=== PATIENT | male | born 1945 | race African-American/Black ===

== ENCOUNTER 2016-03-14 23:08 | Inpatient (IN) | payer OTHER ==
[2016-03-14 23:35] VITALS: BMI 32.8
[2016-03-14 23:36] LABS: RDW 14.7 % (11.9-15.9)
[2016-03-14 23:43] LABS: MCH 25.9 pg (25.7-33.7); MCHC 32.1 g/dl (32.0-35.9); MEAN CELL VOLUME 80.6 fl (80-96); MEAN PLT VOLUME 9.1 fl (7.5-11.1); PLATELET COUNT 165 K/MM3 (134-434); WHITE BLOOD COUNT 15.9 K/mm3 (4.0-10.0)
[2016-03-15] LABS: INR 1.16 (0.82-1.09); PROTHROMBIN TIME (PATIENT) 12.8 SEC (9.98-11.88)
--- NOTE | 2016-03-15 00:13 | PDOC ---
History of Present Illness - General History Source: Patient, Spouse, Old Records Exam Limitations: No Limitations - History of Present Illness Initial Comments: 03/15/16 00:31 The patient is a 70 year old male, with a significant past medical history of HTN, hyperlipidemia, diabetes, CAD, [place] (09/30/2015), GERD, and an enlarged prostate, who presents to the emergency department with a fever, chills and body aches since yesterday but worsening today. The patient additionally reports a dry cough. He reports waves of nausea but denies any vomiting, diarrhea, abdominal pain or dysuria. The patient denies chest pain or SOB. His is with him in the ED. Allergies: None reported. Past Surgical History: Stent, Quadricep Knee Repair Social History: Non smoker. Denies alcohol or drug use. PCP: Dr. Dariana Huddleston Tape Recorder Repairer: Dr. Nice/Dr. Greenberg <Marilin Tolentino - Last Filed: 03/15/16 02:02> <Nel Rosa - Last Filed: 03/15/16 02:35> - General Chief Complaint: Weakness Stated Complaint: WEAKNESS Time Seen by Provider: 03/14/16 23:14 Past History <Marilin Tolentino - Last Filed: 03/15/16 02:02> - Past Medical History Anemia: No Asthma: No Cancer: No Cardiac Disorders: Yes (CAD) CVA: No COPD: No CHF: No Dementia: No Diabetes: Yes (NIDDM) GI Disorders: Yes (GERD) Disorders: Yes (ENLARGED PROSTATE) HTN: Yes Hypercholesterolemia: Yes Liver Disease: No Seizures: No Thyroid Disease: No - Surgical History Abdominal Surgery: No Appendectomy: No Cardiac Surgery: Yes (STENT 2009) Cholecystectomy: No Lung Surgery: No Neurologic Surgery: No Orthopedic Surgery: Yes (QUADRICEP KNEE REPAIR) - Immunization History Immunization Up to Date: No - Psycho/Social/Smoking Cessation Hx Anxiety: No Suicidal Ideation: No Smoking History: Never smoked Have you smoked in the past 12 months: No Hx Alcohol Use: No Drug/Substance Use Hx: No Substance Use Type: None Hx Substance Use Treatment: No <Nel Rosa - Last Filed: 03/15/16 02:35> - Past Medical History Allergies/Adverse Reactions: Allergies Allergy/AdvReac Type Severity Reaction Status Date / Time No Known Allergies Allergy Verified 03/14/16 23:23 Home Medications: Ambulatory Orders Metformin HCl [Glucophage] 1 tab PO DAILY 07/04/13 Metoprolol Succinate [Toprol XL -] 1 tab PO DAILY 07/04/13 Tamsulosin HCl 0.4 mg PO DAILY 06/15/14 Amlodipine Besylate [Norvasc -] 10 mg PO DAILY 06/16/14 Atorvastatin Ca [Lipitor] 40 mg PO HS 06/16/14 Losartan Potassium [Cozaar] 100 mg PO DAILY 06/16/14 Acetaminophen [Tylenol] 2 tab PO QID PRN 03/14/16 Aspirin [ASA -] 81 mg PO DAILY 03/14/16 Ticagrelor [Brilinta] 90 mg PO BID 03/14/16 Review of Systems - Review of Systems Able to Perform ROS?: Yes Comments:: 03/15/16 00:32 CONSTITUTIONAL: Present: +Fever, chills, body aches Absent: no fatigue EYES: Absent: visual changes ENT: Absent: ear pain, no sore throat CARDIOVASCULAR: Absent: chest pain, no palpitations RESPIRATORY: Present: +Cough Absent: no SOB GI: Present: +Nausea Absent: abdominal pain, no vomiting, no constipation, no diarrhea GENITOURINARY: Absent: dysuria, no frequency, no hematuria MUSCULOSKELETAL: Absent: back pain, no arthralgia, no myalgia SKIN: Absent: rash NEURO: Absent: headache <Marilin Tolentino - Last Filed: 03/15/16 02:02> *Physical Exam - Vital Signs Last Vital Signs Temp Pulse Resp BP Pulse Ox 101.4 F H 83 16 151/76 97 03/14/16 23:32 03/14/16 23:32 03/14/16 23:32 03/14/16 23:32 03/14/16 23:32 - Physical Exam Comments: 03/15/16 00:32 GENERAL: Well-appearing, well-nourished. No apparent distress. HEENT: Normocephalic, atraumatic. PERRL, EOM intact. Oropharynx is erythematous but without exudates. Wet mucosa. CARDIOVASCULAR: Borderline tachycardic. Normal S1, S2. PULMONARY: Lungs clear to auscultation bilaterally. No wheezing, rales or rhonchi. ABDOMEN: Soft, non-distended, non-tender. No guarding or rebound. EXTREMITIES: Normal ROM in all four extremities. No gross deformities. 1+ pitting edema bilaterally. SKIN: Warm, dry. No rash. NEUROLOGICAL: No focal neurological deficits. Moving all extremities purposefully. <Marilin Tolentino - Last Filed: 03/15/16 02:02> - Vital Signs Last Vital Signs Temp Pulse Resp BP Pulse Ox 101.4 F H 83 16 151/76 97 03/14/16 23:32 03/14/16 23:32 03/14/16 23:32 03/14/16 23:32 03/14/16 23:32 <Nel Rosa - Last Filed: 03/15/16 02:35> ED Treatment Course - LABORATORY CBC & Chemistry Diagram: 03/14/16 23:30 03/14/16 23:30 - ADDITIONAL ORDERS Additional order review: Laboratory Results 03/14/16 23:30 INR 1.16 H 03/14/16 23:30 RBC 4.94 MCV 80.6 MCHC 32.1 RDW 14.7 MPV 9.1 Neutrophils % Y Lymphocytes % Y <Marilin Tolentino - Last Filed: 03/15/16 02:02> - LABORATORY CBC & Chemistry Diagram: 03/14/16 23:30 03/14/16 23:30 - ADDITIONAL ORDERS Additional order review: 03/14/16 23:30 RBC 4.94 MCV 80.6 MCHC 32.1 RDW 14.7 MPV 9.1 Neutrophils % Y Lymphocytes % Y <Nel Rosa - Last Filed: 03/15/16 02:35> Medical Decision Making - Medical Decision Making 03/15/16 02:02 Called patient's PCP, Dr. Huddleston, at at 02:02. Connected with Dr. Sheth, case discussed. <Marilin Tolentino - Last Filed: 03/15/16 02:02> - Medical Decision Making 03/15/16 02:24 70-year-old male presents to the emergency department with fever, body aches waves of nausea for the past day. Past medical history significant for atherosclerotic heart disease, myocardial infarction, [id number]-mpzrtapzk diabetes, hypertension, Dr. Dariana Huddleston is his primary care physician -pt is Oriented 3 coming from home with his Patient has benign abdominal exam. Lungs are clear to auscultation. Tachycardic Rapid strep culture was negative. Influenza A and influenza B swabs are negative X-ray doesn't show any obvious infiltrate However, he does have a leukocytosis of almost 16,000. There is no bandemia appreciated. Urine shows 3+ leukocytes -His troponin came back and the suspicious range. It was 0.07. This needs to be repeated in 4 hours. He should also has a significant hypokalemia with a potassium of 2.8. This is currently being supplemented -case discussed w Dr Stack and pt admitted <Nel Rosa - Last Filed: 03/15/16 02:35> *DC/Admit/Observation/Transfer - Attestations Scribe Attestion: 03/15/16 00:32 Documentation prepared by Marilin Tolentino, acting as medical translator for Nel Rosa MD. <Marilin Tolentino - Last Filed: 03/15/16 02:02> - Discharge Dispostion Admit: Yes <Nel Rosa - Last Filed: 03/15/16 02:35> Diagnosis at time of Disposition: Fever in adult, Urinary tract infection, Hypokalemia - Referrals Referrals: Dariana Huddleston MD [Primary Care Provider] -
[2016-03-15 00:26] LABS: ALBUMIN 3.9 g/dl (3.4-5.0); ANION GAP 13 (8-16); CALCIUM 8.8 mg/dL (8.5-10.1); CO2 27 mmol/L (21-32); CREATININE 1.2 mg/dL (0.7-1.3); GLUCOSE,RANDOM 156 mg/dL (74-106); SGOT/AST 12 U/L (15-37); SGPT/ALT 20 U/L (12-78)
[2016-03-15 00:30] LABS: ALK PHOS 90 U/L (45-117); BILIRUBIN,TOTAL 2.5 mg/dL (0.2-1.0); TOT PROT 6.8 g/dl (6.4-8.2); TROPONIN I 0.07 ng/ml (0.00-0.05)
[2016-03-15] MEDS ORDERED: POTASSIUM CHLORIDE TABS 20 MEQ TABLET.ER (FP) PO ONE ×2 (00:53→01:27)
[2016-03-15 01:58] LABS: URINE APPEARANCE SLCLOUDY; URINE BILIRUBIN NEGATIVE (NEGATIVE); URINE BLOOD NEGATIVE (NEGATIVE); URINE COLOR YELLOW; URINE GLUCOSE (UA) 1+ (NEGATIVE); URINE KETONE NEGATIVE (NEGATIVE); URINE NITRITE NEGATIVE (NEGATIVE); URINE UROBILINOGEN 4.0 E.U/dl E.U./dl (0.2-1.0)
[2016-03-15 02:00] LABS: URINE LEUK ESTERASE 3+ (NEGATIVE); URINE PROTEIN 1+ (NEGATIVE)
[2016-03-15 02:03] LABS: URINE MUCUS RARE; URINE RBC 5 /hpf (0-3); URINE WBC 118 /hpf (3-5)
[2016-03-15] MEDS ORDERED: LEVOFLOXACIN 500 MG IVPB 100 ML IVPB ONE ×3 (02:13→03:05)
[2016-03-15] MEDS ORDERED: ACETAMINOPHEN 500 MG TABLET (FP) PO ONE (02:24)
[2016-03-15 02:28] LABS: YEAST NONE SEEN
[2016-03-15 02:35] LABS: PLATELET ESTIMATE ADEQUATE (NORMAL)
[2016-03-15] MEDS ORDERED: ACETAMINOPHEN 325 MG TABLET (FP) ONE ×3 (02:37→14:17)
[2016-03-15] MEDS ORDERED: SODIUM CHLORIDE 1,000 ML IV ONE (03:21)
[2016-03-15 03:57] LABS: TROPONIN I 0.06 ng/ml (0.00-0.05)
[2016-03-15] MEDS ORDERED: metFORMIN HCL 500 MG TABLET (FP) ONE (07:01)
[2016-03-15] MEDS: metFORMIN HCL 500 MG TABLET (FP) PO SCH (07:04)
[2016-03-15 07:35] LABS: BASOPHIL 0.3 % (0-2.0); MCH 27.2 pg (25.7-33.7); MCHC 33.7 g/dl (32.0-35.9); MEAN CELL VOLUME 80.8 fl (80-96); MEAN PLT VOLUME 8.8 fl (7.5-11.1); NEUTROPHILS 84.6 % (42.8-82.8); PLATELET COUNT 160 K/MM3 (134-434); RDW 14.7 % (11.9-15.9); WHITE BLOOD COUNT 19.2 K/mm3 (4.0-10.0)
[2016-03-15 08:13] LABS: ALBUMIN 3.5 g/dl (3.4-5.0); BILIRUBIN,TOTAL 3.5 mg/dL (0.2-1.0); CALCIUM 8.6 mg/dL (8.5-10.1); CREATININE 1.3 mg/dL (0.7-1.3); TOT PROT 6.8 g/dl (6.4-8.2)
[2016-03-15] MEDS ORDERED: TAMSULOSIN HCL 0.4 MG CAP.ER.24H (FP) ONE (09:13)
[2016-03-15] MEDS: TAMSULOSIN HCL 0.4 MG CAP.ER.24H (FP) PO SCH (09:32)
--- NOTE | 2016-03-15 10:49 | CONSULT ---
Consult Consult Specialty:: Cardiology Referred by:: Tracey Stack MD Reason for Consultation:: CAD, demand ischemia - History of Present Illness Chief Complaint: Fevers, chills History of Present Illness: The patient is a 70 year old male with significant past medical history of HTN, hyperlipidemia, diabetes, CAD post [place] PCI (stent) (prox RCA 09/30/2015), angina pectoris, GERD, and an enlarged prostate, who presents to the emergency department with a fever, chills, myalgias, burning on urination , suprapubic pain without flank pain. He reports waves of nausea but denies any vomiting, diarrhea, abdominal pain. The patient denies chest pain or SOB, near or true syncope, palpitations, orthopnea, PND or LE edema. Allergies: None reported. Past Surgical History: Stent, Quadricep Knee Repair Social History: Non smoker. Denies alcohol or drug use. PCP: Dr. Dariana Huddleston Manager Behavioral: Dr. Nice/Dr. Greenberg - History Source History Provided By: Patient Limitations to Obtaining History: No Limitations - Past Medical History Cardio/Vascular: Yes: CAD, HTN, Hyperlipdemia, [place] - Past Surgical History Past Surgical History: Yes: Stent - Alcohol/Substance Use Hx Alcohol Use: No - Smoking History Smoking history: Never smoked Have you smoked in the past 12 months: No Home Medications - Allergies Allergies/Adverse Reactions: Allergies Allergy/AdvReac Type Severity Reaction Status Date / Time No Known Allergies Allergy Verified 03/14/16 23:23 - Home Medications Home Medications: Ambulatory Orders Metformin HCl [Glucophage] 1 tab PO DAILY 07/04/13 Metoprolol Succinate [Toprol XL -] 1 tab PO DAILY 07/04/13 Tamsulosin HCl 0.4 mg PO DAILY 06/15/14 Amlodipine Besylate [Norvasc -] 10 mg PO DAILY 06/16/14 Atorvastatin Ca [Lipitor] 40 mg PO HS 06/16/14 Losartan Potassium [Cozaar] 100 mg PO DAILY 06/16/14 Acetaminophen [Tylenol] 2 tab PO QID PRN 03/14/16 Aspirin [ASA -] 81 mg PO DAILY 03/14/16 Ticagrelor [Brilinta] 90 mg PO BID 03/14/16 Review of Systems - Review of Systems Constitutional: reports: Chills, Fever Genitourinary: reports: Burning - Risk Factors Known Risk Factors: Yes: Age, Hypercholesterolemia, Hypertension Vital Signs: Vital Signs Temperature 98.9 F 03/15/16 07:04 Pulse Rate 85 03/15/16 07:00 Respiratory Rate 20 03/15/16 07:00 Blood Pressure 140/81 03/15/16 07:00 O2 Sat by Pulse Oximetry (%) 97 03/15/16 07:20 Constitutional: Yes: No Distress, Calm Neck: Yes: Supple Respiratory: Yes: Regular, CTA Bilaterally Gastrointestinal: Yes: Normal Bowel Sounds, Soft Cardiovascular: Yes: Regular Rate and Rhythm JVD: No Carotid Bruit: No Heart Sounds: Yes: S1, S2 Edema: No - Other Data Labs, Other Data: CBC, BMP 03/15/16 06:25 03/15/16 06:25 INR, PTT INR 1.16 (0.82-1.09) H 03/14/16 23:30 NSR @ 88 PAC, LAD Prior Cardiac Procedures: PTCA with Stent Ejection Fraction %: LVEF > or = 40 % Imaging - Results Chest X-ray: Report Reviewed (NAD) Problem List - Problems (1) Fever in adult Code(s): R50.9 - FEVER, UNSPECIFIED (2) Hypokalemia Code(s): E87.6 - HYPOKALEMIA (3) UTI (urinary tract infection) Code(s): N39.0 - URINARY TRACT INFECTION, SITE NOT SPECIFIED (4) Coronary artery disease Code(s): I25.10 - ATHSCL HEART DISEASE OF [place] CORONARY ARTERY W/O ANG PCTRS Qualifiers: Coronary Disease-Associated Artery/Lesion type: [place] artery [place] vs. 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 Code(s): I11.9 - HYPERTENSIVE HEART DISEASE WITHOUT HEART FAILURE (8) Hyperlipidemia associated with type 2 diabetes mellitus Code(s): E11.69 - TYPE 2 DIABETES MELLITUS WITH OTHER SPECIFIED COMPLICATION E78.5 - HYPERLIPIDEMIA, UNSPECIFIED (9) Diabetes mellitus Code(s): E11.9 - TYPE 2 DIABETES MELLITUS WITHOUT COMPLICATIONS Qualifiers: Diabetes mellitus type: type 2 Diabetes mellitus complication detail: with microalbuminuria Diabetes mellitus roasterman insulin use: without roasterman use (10) Leukocytosis Code(s): D72.829 - ELEVATED WHITE BLOOD CELL COUNT, UNSPECIFIED Qualifiers: Leukocytosis type: unspecified Qualified Code(s): D72.829 - Elevated white blood cell count, unspecified (11) Demand ischemia Code(s): I24.8 - OTHER FORMS OF ACUTE ISCHEMIC HEART DISEASE Assessment/Plan 09/30/2015 cLVH with normal LV fxn without sig valve abnl 1. Leukocytosis, UTI, underlying BPH 2. CAD h/o [place], PCI (stent), demand ischemia 3. PAF->SR anuel-MA likely ischemic 4. CKD with hypokalemia 5. Type 2 DM 6. Hyperlipidemia 7. Palpitations h/o PVC 8. Diastolic dysfunction with h/o failure P:1. Cycle cardiac enzymes to confirm peak, admit to medicine 2. Abx course per C&S 3. Continue ASA 81 qd, Brilinta 90 bid, Lipitor 40 qd, Toprol XL 100 qd, Norvasc 10 qd, and losartan 100 qd. Lasix 20 qd held for now, repleted KBeverly 4. Thank you for consultative opportunity
--- NOTE | 2016-03-15 11:00 | PN ---
Progress Note, Physician Chief Complaint: Pt lying in bed,afebrile,mild suprapubic pain present, Cardiology,ID consult ordered Rpt elevated bilirubin noted.Pt had h/o elevated bilirubin in the past,GI evaluation and Ultrasound of abdomen ordered Lecocytosis present - Current Medication List Current Medications: Active Medications Acetaminophen (Tylenol -) 650 mg PO Q6H PRN PRN Reason: FEVER Amlodipine Besylate (Norvasc -) 10 mg PO DAILY [facility] Aspirin (Asa -) 81 mg PO DAILY [facility] Atorvastatin Calcium (Lipitor -) 40 mg PO HS [facility] Sodium Chloride (Normal Saline -) 1,000 mls @ 100 mls/hr IV ASDIR ONE Stop: 03/15/16 13:20 Last Admin: 03/15/16 03:26 Dose: 100 mls/hr Levofloxacin (Levaquin 500 Mg Premixed Ivpb -) 100 mls @ 100 mls/hr IVPB DAILY [facility] Losartan Potassium (Cozaar -) 100 mg PO DAILY [facility] Metformin HCl (Glucophage -) 1,000 mg PO AM [facility] Last Admin: 03/15/16 07:04 Dose: 1,000 mg Metoprolol Succinate (Toprol Xl -) 100 mg PO DAILY [facility] Tamsulosin HCl (Flomax -) 0.4 mg PO DAILY@0830 [facility] Last Admin: 03/15/16 09:32 Dose: 0.4 mg Ticagrelor (Brilinta -) 90 mg PO BID [facility] - Objective Vital Signs: Vital Signs Temperature 98.9 F 03/15/16 07:04 Pulse Rate 85 03/15/16 07:00 Respiratory Rate 20 03/15/16 07:00 Blood Pressure 140/81 03/15/16 07:00 O2 Sat by Pulse Oximetry (%) 97 03/15/16 07:20 Constitutional: Yes: No Distress Eyes: Yes: Conjunctiva Clear HENT: Yes: Atraumatic, Normocephalic Neck: Yes: Supple, Trachea Midline Cardiovascular: Yes: Regular Rate and Rhythm Respiratory: Yes: Regular, CTA Bilaterally Gastrointestinal: Yes: Normal Bowel Sounds, Soft Genitourinary: Yes: Other (No CVA tenderness) Musculoskeletal: Yes: WNL Extremities: Yes: WNL Edema: Yes Edema: LLE: Trace, RLE: Trace Peripheral Pulses WNL: Yes Neurological: Yes: WNL, Alert ...Motor Strength: WNL Psychiatric: Yes: WNL Labs: CBC, BMP 03/15/16 06:25 03/15/16 06:25 INR, PTT INR 1.16 (0.82-1.09) H 03/14/16 23:30 - ....Imaging Chest X-ray: Report Reviewed Assessment/Plan Fever,Leukocytosis UTI Hypokalemia CAD,H/O [place],S/P stent Elevated bilirubin Hypertension,Hyperlipidemia DM PLAN Will f/u urine and blood culture Continue antibiotics Continue home MEDS Abdominal sonogram will f/u ID,Cardiology,and GI rec Will f/u K and WBC
[2016-03-15] MEDS: METOPROLOL SUCCINATE 100 MG TAB.SR.24H (FP) PO SCH (11:15)
[2016-03-15] MEDS: LOSARTAN POTASSIUM 50 MG TABLET (FP) PO SCH (11:15)
[2016-03-15] MEDS: TICAGRELOR 90 MG TABLET PO SCH ×2 (11:15→23:51)
[2016-03-15] MEDS: amLODIPine BESYLATE 10 MG TABLET (FP) PO SCH (11:15)
[2016-03-15] MEDS: ASPIRIN 81 MG CHEWABLE TABLETS PO SCH (11:15)
[2016-03-15] MEDS ORDERED: ASPIRIN 81 MG CHEWABLE TABLETS ONE (11:16)
[2016-03-15 12:29] LABS: TROPONIN I 0.05 ng/ml (0.00-0.05)
[2016-03-15] MEDS ORDERED: PANTOPRAZOLE 40 MG TABLET (FP) PO ONE (14:09)
[2016-03-15] MEDS ORDERED: PANTOPRAZOLE 40 MG TABLET (FP) ONE (14:17)
[2016-03-15] MEDS: ACETAMINOPHEN 325 MG TABLET (FP) PO PRN (14:17)
--- NOTE | 2016-03-15 15:30 | PN ---
Progress Note (short form) - Note Progress Note: consult dictated
--- NOTE | 2016-03-15 16:02 | HP ---
DATE OF ADMISSION: 03/15/2016 The patient is a 70-year-old male with a significant past medical history of hypertension, hyperlipidemia, diabetes, coronary artery disease, [place] in the past, reflux disease, and enlarged prostate, who presented to the emergency department with complaints of fever, chills, body aches since yesterday, but is worsened since 1 day. Patient additionally also complains of dry cough and mild nausea. No vomiting, no diarrhea. No abdominal pain. No dysuria. Patient denies chest pain, shortness of breath. Since the symptoms were worsened, patient came to the emergency room. PAST MEDICAL HISTORY: History of coronary artery disease, diabetes, hypertension, reflux, enlarged prostate, hypertension, hypercholesterolemia. SURGICAL HISTORY: Stent placement, surgery for quadriceps muscle injury. No known drug allergies. Medication reviewed. Patient is on metformin (Glucophage) 500 mg, daily metoprolol, Flomax, amlodipine, Lipitor, Tylenol, Cozaar, aspirin, and Brilinta antiplatelet medication. PERSONAL HISTORY: Never smoked. Patient lives with the family. REVIEW OF SYSTEMS: General Symptoms: Complains of fever, chills, body ache. Respiratory: Cough present. Gastrointestinal: Nausea present. No abdominal pain, no diarrhea. Genitourinary: No dysuria. Musculoskeletal: Complains of muscle pain. Central Nervous System: No dizziness, no headache. PHYSICAL EXAMINATION IN EMERGENCY ROOM: Vital Signs: Temperature 101.4. Pulse rate 83. Respiration 16. Blood pressure 151/76, saturation 97%. Head and Neck: Normal. Neck supple. No JVD. Chest: Clear. Cardiovascular: 1st and 2nd sound normal. Abdomen: Soft. No tenderness, no distention. Bowel sounds present. Extremities: Trace edema present. Central Nervous System: Alert, oriented x3. No apparent motor or sensory deficit. Reflexes normal. LABORATORIES: WBC 15.9, hemoglobin and hematocrit normal, platelets normal. Comprehensive panel: Sodium 142, potassium 2.8, chloride 102, bicarbonate 27, BUN 17, creatinine 1.2, sugar 156, total bilirubin 2.5, ALT 20, AST 20, alkaline phosphatase 20. CK 153, CK-MB less than 1000. Cardiac enzymes: Troponin 0.07. Urine shows RBC 5, WBC 118. Urine protein 1+, glucose 1+, leukocyte esterase 3+. X-ray of chest negative. Patient admitted in the floor with admitting diagnosis of fever, leukocytosis, urinary tract infection, hypokalemia, elevated bilirubin. PLAN: Levaquin 500 mg IV started. Urine and blood cultures sent. Home medication resumed. Infectious disease consult, GI consult, and cardiology consult called. Repeat the labs. Patient stable on the floor. MARILYN CRISTOBAL M.D. [id number]
--- NOTE | 2016-03-15 16:19 | CONSULT ---
Consult Consult Specialty:: infectious diseases Reason for Consultation:: uti prostatitis - History of Present Illness Chief Complaint: fever,uti abd pain History of Present Illness: 70 year old male with significant past medical history of HTN, hyperlipidemia, diabetes, CAD post [place] PCI (stent) angina pectoris, GERD, and an enlarged prostate, who presents to the emergency department with a fever, chills , myalgias, burning on urination, suprapubic pain without flank pain. edema. patient now spiking fevers patient has known history of bph since a long time and he is spiking fevers and c/o of dysuria and suprapubic pain patient denies vomiting but has had nausea - History Source History Provided By: Patient Limitations to Obtaining History: No Limitations - Past Medical History Cardio/Vascular: Yes: CAD, HTN, Hyperlipdemia, [place] - Past Surgical History Past Surgical History: Yes: Stent - Alcohol/Substance Use Hx Alcohol Use: No - Smoking History Smoking history: Never smoked Have you smoked in the past 12 months: No Home Medications - Allergies Allergies/Adverse Reactions: Allergies Allergy/AdvReac Type Severity Reaction Status Date / Time No Known Allergies Allergy Verified 03/14/16 23:23 - Home Medications Home Medications: Ambulatory Orders Metformin HCl [Glucophage] 1 tab PO DAILY 07/04/13 Metoprolol Succinate [Toprol XL -] 1 tab PO DAILY 07/04/13 Tamsulosin HCl 0.4 mg PO DAILY 06/15/14 Amlodipine Besylate [Norvasc -] 10 mg PO DAILY 06/16/14 Atorvastatin Ca [Lipitor] 40 mg PO HS 06/16/14 Losartan Potassium [Cozaar] 100 mg PO DAILY 06/16/14 Acetaminophen [Tylenol] 2 tab PO QID PRN 03/14/16 Aspirin [ASA -] 81 mg PO DAILY 03/14/16 Ticagrelor [Brilinta] 90 mg PO BID 03/14/16 Review of Systems - Review of Systems Constitutional: reports: Fever, Weakness Eyes: reports: No Symptoms HENT: reports: No Symptoms Neck: reports: No Symptoms Cardiovascular: reports: No Symptoms Respiratory: reports: No Symptoms Gastrointestinal: reports: Abdominal Pain, Bloating Genitourinary: reports: Dysuria, Other (suprapubic pain) Integumentary: reports: No Symptoms Neurological: reports: No Symptoms Endocrine: reports: No Symptoms Hematology/Lymphatic: reports: No Symptoms Psychiatric: reports: No Symptoms Physical Exam Vital Signs: Vital Signs Temperature 99.6 F 03/15/16 16:13 Pulse Rate 83 03/15/16 16:13 Respiratory Rate 18 03/15/16 16:13 Blood Pressure 160/80 03/15/16 16:13 O2 Sat by Pulse Oximetry (%) 98 03/15/16 14:10 Constitutional: Yes: Well Nourished, Calm, Mild Distress, Obese Cardiovascular: Yes: Regular Rate and Rhythm Respiratory: Yes: Regular, CTA Bilaterally Gastrointestinal: Yes: Normal Bowel Sounds, Soft Renal/: Yes: Other (suprapubic tenderness). No: CVA Tenderness - Left, CVA Tenderness - Right Musculoskeletal: Yes: Other Extremities: Yes: Other Neurological: Yes: Alert, Oriented Psychiatric: Yes: Alert Labs: CBC, BMP 03/15/16 06:25 03/15/16 06:25 Imaging - Results Chest X-ray: Report Reviewed, Image Reviewed Assessment/Plan Problem List - Problems (1) Fever in adult Code(s): R50.9 - FEVER, UNSPECIFIED (2) Hypokalemia Code(s): E87.6 - HYPOKALEMIA (3) UTI (urinary tract infection) Code(s): N39.0 - URINARY TRACT INFECTION, SITE NOT SPECIFIED (4) Coronary artery disease Code(s): I25.10 - ATHSCL HEART DISEASE OF [place] CORONARY ARTERY W/O ANG PCTRS Qualifiers: Coronary Disease-Associated Artery/Lesion type: [place] artery [place] vs. 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 Code(s): I11.9 - HYPERTENSIVE HEART DISEASE WITHOUT HEART FAILURE (8) Hyperlipidemia associated with type 2 diabetes mellitus Code(s): E11.69 - TYPE 2 DIABETES MELLITUS WITH OTHER SPECIFIED COMPLICATION E78.5 - HYPERLIPIDEMIA, UNSPECIFIED (9) Diabetes mellitus Code(s): E11.9 - TYPE 2 DIABETES MELLITUS WITHOUT COMPLICATIONS Qualifiers: Diabetes mellitus type: type 2 Diabetes mellitus complication detail: with microalbuminuria Diabetes mellitus chcf insulin use: without emt intermediate use (10) Leukocytosis Code(s): D72.829 - ELEVATED WHITE BLOOD CELL COUNT, UNSPECIFIED Qualifiers: Leukocytosis type: unspecified Qualified Code(s): D72.829 - Elevated white blood cell count, unspecified (11) Demand ischemia Code(s): I24.8 - OTHER FORMS OF ACUTE ISCHEMIC HEART DISEASE 12 r/o prostatitis 13 sepsis 14 leukocytosis with aptient having fevers and his chronic bph i am worried patient might having prostatitis i am also going to get u/s of the kidneys plan will start patient on meropenam will await for all other reports to come back then will adjust abx accordingly await for imaging studies bilrubin increase could very well be due to sepsis hydration
--- NOTE | 2016-03-15 17:13 | EKG ---
Test Reason : Blood Pressure : / mmHG Vent. Rate : 088 BPM Atrial Rate : 088 BPM P-R Int : 180 ms QRS Dur : 080 ms QT Int : 366 ms P-R-T Axes : 056 -32 030 degrees QTc Int : 442 ms SINUS RHYTHM WITH PREMATURE ATRIAL COMPLEXES LEFT AXIS DEVIATION NONSPECIFIC T WAVE ABNORMALITY ABNORMAL ECG WHEN COMPARED WITH ECG OF 30-SEP-2015 03:58, PREMATURE ATRIAL COMPLEXES ARE NOW PRESENT VENT. RATE HAS INCREASED BY 32 BPM Confirmed by BHANU SINCLAIR MD ([id number]) on 03/15/2016 5:12:50 PM Referred By: Confirmed By:BHANU SINCLAIR MD
[2016-03-15] MEDS: MEROPENEM 1 GM in DEXTROSE 5%-WATER - 100 ML IVPB SCH (17:33)
--- NOTE | 2016-03-15 18:27 | CONS ---
DATE OF CONSULTATION: DATE OF DICTATION: 03/15/2016 GASTROINTESTINAL CONSULTATION REQUESTING PHYSICIAN: Tracey Stack M.D. HISTORY OF PRESENT ILLNESS: The patient is a 70-year-old admitted through [facility] for evaluation of fevers. He describes some lower abdominal discomfort as well as muscle aches including his lower extremities, and when he kept having fevers in the emergency room, he was admitted for further evaluation. His initial white blood count in the emergency room was 15.9, it went up to 19.2. Of note, his bilirubin was noted to be an isolated elevation of his bilirubin of 3.5 with otherwise normal liver chemistries. He does have a history of elevated liver chemistries and going back through the [facility] system, it appears it has been elevated from at least 2010. The patient does recall being told also of elevated bilirubin in the past. I had evaluated the patient in June of 2013. At that time, it was for evaluation of reflux symptomatology as well as given his family history of colorectal cancer. He did have urinary symptoms at that time, and I advised him to discuss with his primary Dr. Huddleston, his urinary frequency and finding of an enlarged prostate noted on my physical exam at that time. Workup at that time included both an upper endoscopy and colonoscopy. August 02, 2013, upper endoscopy revealed small pockets of retained liquid/semiformed stool in the left colon, small polyps requiring aggressive washing and suctioning, and was otherwise normal, and moderate internal hemorrhoids were noted. Endoscopy revealed plaques in the mid esophagus consistent with duarte, small gastric erosion in the body of the stomach and a normal duodenum. Advised discontinuing proton pump inhibitor therapy and using Zantac OTC 150 mg once daily and Diflucan therapy was also prescribed. He currently denies any rectal bleeding, denies any abdominal pain currently. Denies any diarrhea. He was noted to have a positive urinalysis with 118 WBCs, 3+ leukocyte esterase. PAST MEDICAL HISTORY: Includes diabetes mellitus type 2, hypertension, hyperlipidemia, coronary artery disease. He has a remote history of cardiac stenting x1 and tells me that he has had 3 more cardiac stents placed this past September of 2015. PAST SURGICAL HISTORY: Includes cardiac stenting in 2009, and in September of 2015 x3. SOCIAL HISTORY: He was born in the [place]. 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 No history of smoking. He described previous heavy alcohol consumption. He quit in 1989. Described previous marijuana use. FAMILY HISTORY: Father at age 85. He had diabetes and possible colon cancer. Mother at age 83. She had diabetes and had several amputations. He had 9 siblings, 6 from MVAs, epilepsy complications from diabetes, AIDS, and also natural causes. Two children alive and well. MEDICATION PRIOR TO ADMISSION: Toprol XL, Glucophage, tamsulosin, Cozaar, Norvasc, Lipitor, Brilinta, aspirin, and Tylenol. ALLERGIES: No known drug allergies. REVIEW OF SYSTEMS: Currently denies any chest pain. He did complain of a slight cough, without sputum production. He did complain of chills and fevers at home. No nausea or vomiting. No food fear . No early satiety. Denies any dysphagia or odynophagia. Remainder of GI review of systems as noted in the history of present illness. He complained of urinary frequency and burning prior to admission. PHYSICAL EXAMINATION: General: The patient is found lying comfortably in his bed . He appeared to be in no apparent distress . Vital signs: Temperature 100.3 with pulse of 80, blood pressure 148/74. HEENT: Sclerae anicteric. Neck: Supple. Heart: Regular rate and rhythm . No murmurs appreciated. Lungs: Clear to auscultation bilaterally. Abdomen: Nondistended. There were no scars. No hepatosplenomegaly was appreciated. He had normoactive bowel sounds. No tenderness was elicited. No hernias were appreciated. Rectal: Digital rectal examination, no external lesions and no masses in the rectal vault. He had a 2+ prostate. His stool was light brown and guaiac negative. Extremities: No lower extremity edema. Neurologic: The patient was awake, alert, oriented. LABORATORY EVALUATION: White blood count 19.2, hemoglobin 12.2, hematocrit 36.2, platelets 160, neutrophils 84.6%, INR of 1.16, sodium 141, potassium 3.5, chloride 103, bicarbonate of 31. BUN 18, creatinine 1.3, AST 12, ALT 19, alkaline phosphatase 89, total bilirubin 3.5 with albumin of 3.5. Troponin 0.07 and 0.06, 0.05 this morning. Radiology reports he had a chest x-ray performed revealing no evidence of active pulmonary disease. IMPRESSION: A 70-year-old male with urinary symptomatology, lower abdominal pain which is improved. I would suspect urinary tract infection. He also has an isolated elevation of his bilirubin which I suspect to be secondary to his Gilbert's disease. I suspect that it is higher than his baseline given the possibility of an ongoing acute infection. PLAN: Check direct bilirubin and abdominal ultrasound has been ordered. Other recommendations pending the above. He is also being seen by infectious disease. He will need treatment of his urinary tract infection. I thank you for this consultative opportunity. NASEEM RITCHIE DO [id number]
[2016-03-15] MEDS: ATORVASTATIN CA 40 MG TABLET (FP) PO SCH (22:46)
[2016-03-15] MEDS ORDERED: PT OWN MED DRAWER 7, Y5N ONE (22:49)
[2016-03-16] MEDS: ACETAMINOPHEN 325 MG TABLET (FP) PO PRN ×3 (01:03→16:54)
[2016-03-16] MEDS: MEROPENEM 1 GM in DEXTROSE 5%-WATER - 100 ML IVPB SCH ×3 (02:29→17:03)
[2016-03-16] MEDS ORDERED: PT OWN MED DRAWER 7, Y5N ONE ×3 (06:40→19:24)
[2016-03-16 08:08] LABS: BASOPHIL 0.2 % (0-2.0); MCHC 32.8 g/dl (32.0-35.9); MEAN CELL VOLUME 82.3 fl (80-96); MEAN PLT VOLUME 9.3 fl (7.5-11.1); NEUTROPHILS 88.5 % (42.8-82.8); RDW 14.7 % (11.9-15.9); WHITE BLOOD COUNT 13.2 K/mm3 (4.0-10.0)
[2016-03-16 08:25] LABS: ALBUMIN 3.5 g/dl (3.4-5.0); CALCIUM 9.1 mg/dL (8.5-10.1)
[2016-03-16 08:28] LABS: BILIRUBIN,DIRECT 0.6 mg/dL (0.0-0.2); BILIRUBIN,TOTAL 4.6 mg/dL (0.2-1.0); CREATININE 1.3 mg/dL (0.7-1.3)
[2016-03-16] MEDS: metFORMIN HCL 500 MG TABLET (FP) PO SCH (09:08)
[2016-03-16] MEDS: ASPIRIN 81 MG CHEWABLE TABLETS PO SCH (09:32)
[2016-03-16] MEDS: LOSARTAN POTASSIUM 50 MG TABLET (FP) PO SCH (09:32)
[2016-03-16] MEDS: amLODIPine BESYLATE 10 MG TABLET (FP) PO SCH (09:32)
[2016-03-16] MEDS: METOPROLOL SUCCINATE 100 MG TAB.SR.24H (FP) PO SCH (09:32)
[2016-03-16] MEDS: TICAGRELOR 90 MG TABLET PO SCH ×2 (09:33→22:03)
[2016-03-16] MEDS: TAMSULOSIN HCL 0.4 MG CAP.ER.24H (FP) PO SCH (09:33)
--- NOTE | 2016-03-16 09:36 | PN ---
Progress Note, Physician Chief Complaint: Pt lying in bed Cardiology,ID consult ordered Rpt elevated bilirubin noted.Pt had h/o elevated bilirubin in the past,GI evaluation noted WBC coming down 13.2 will f/u renal and abd u/s report - Current Medication List Current Medications: Active Medications Acetaminophen (Tylenol -) 650 mg PO Q6H PRN PRN Reason: FEVER Last Admin: 03/16/16 01:03 Dose: 650 mg Amlodipine Besylate (Norvasc -) 10 mg PO DAILY [facility] Last Admin: 03/15/16 11:15 Dose: 10 mg Aspirin (Asa -) 81 mg PO DAILY [facility] Last Admin: 03/15/16 11:15 Dose: 81 mg Atorvastatin Calcium (Lipitor -) 40 mg PO HS [facility] Last Admin: 03/15/16 22:46 Dose: 40 mg Meropenem 1 gm/ Dextrose 100 mls @ 250 mls/hr IVPB Q8H-IV [facility] Last Admin: 03/16/16 02:29 Dose: 250 mls/hr Losartan Potassium (Cozaar -) 100 mg PO DAILY [facility] Last Admin: 03/15/16 11:15 Dose: 100 mg Metformin HCl (Glucophage -) 1,000 mg PO AM [facility] Last Admin: 03/16/16 09:08 Dose: Not Given Metoprolol Succinate (Toprol Xl -) 100 mg PO DAILY [facility] Last Admin: 03/15/16 11:15 Dose: 100 mg Tamsulosin HCl (Flomax -) 0.4 mg PO DAILY@0830 [facility] Last Admin: 03/15/16 09:32 Dose: 0.4 mg Ticagrelor (Brilinta -) 90 mg PO BID [facility] Last Admin: 03/15/16 23:51 Dose: 90 mg - Objective Vital Signs: Vital Signs Temperature 100.3 F H 03/16/16 06:00 Pulse Rate 103 H 03/16/16 06:00 Respiratory Rate 20 03/16/16 06:00 Blood Pressure 159/100 03/16/16 06:00 O2 Sat by Pulse Oximetry (%) 98 03/15/16 21:00 Constitutional: Yes: No Distress Eyes: Yes: Conjunctiva Clear HENT: Yes: Atraumatic, Normocephalic Neck: Yes: Supple, Trachea Midline Cardiovascular: Yes: Regular Rate and Rhythm Respiratory: Yes: Regular, CTA Bilaterally Gastrointestinal: Yes: Normal Bowel Sounds, Soft Musculoskeletal: Yes: WNL Extremities: Yes: WNL, Delayed Capillary Refill Edema: No Peripheral Pulses WNL: Yes Neurological: Yes: WNL, Alert, Oriented ...Motor Strength: WNL Labs: CBC, BMP 03/16/16 06:00 03/16/16 06:00 INR, PTT INR 1.16 (0.82-1.09) H 03/14/16 23:30 Vital Signs (72 hours) 03/14/16 03/15/16 03/15/16 23:32 02:40 07:00 Temperature 101.4 F H 101.9 F H 98.8 F Pulse Rate 83 Pulse Rate [ 83 85 Right] Respiratory 16 24 20 Rate Blood Pressure 151/76 Blood Pressure 140/81 [Left Arm] O2 Sat by Pulse 97 97 97 Oximetry (%) 03/15/16 03/15/16 03/15/16 07:04 07:20 11:00 Temperature 98.9 F 99.5 F Pulse Rate Pulse Rate [ 84 Right] Respiratory 20 Rate Blood Pressure Blood Pressure 170/86 [Left Arm] O2 Sat by Pulse 97 97 Oximetry (%) 03/15/16 03/15/16 03/15/16 14:10 16:13 16:16 Temperature 100.3 F H 99.6 F 99.6 F Pulse Rate 83 83 Pulse Rate [ 80 Right] Respiratory 20 18 18 Rate Blood Pressure 160/80 160/80 Blood Pressure 148/74 [Left Arm] O2 Sat by Pulse 98 98 Oximetry (%) 03/15/16 03/15/16 03/16/16 18:26 21:00 01:43 Temperature 99.0 F 102.4 F H Pulse Rate 83 Pulse Rate [ Right] Respiratory 20 20 Rate Blood Pressure 143/84 Blood Pressure [Left Arm] O2 Sat by Pulse 98 Oximetry (%) 03/16/16 06:00 Temperature 100.3 F H Pulse Rate 103 H Pulse Rate [ Right] Respiratory 20 Rate Blood Pressure 159/100 Blood Pressure [Left Arm] O2 Sat by Pulse Oximetry (%) Laboratory Results - last 24 hr 03/15/16 03/16/16 03/16/16 10:55 05:57 06:00 WBC RBC Hgb Hct MCV MCHC RDW MPV Neutrophils % Lymphocytes % Monocytes % Eosinophils % Basophils % Sodium 140 Potassium 3.2 L Chloride 102 Carbon Dioxide 30 Anion Gap 8 BUN 14 D Creatinine 1.3 Creat Clearance w eGFR 54.42 POC Glucometer 141 Random Glucose 142 H Calcium 9.1 Total Bilirubin 4.6 H D Direct Bilirubin 0.6 H AST 12 L ALT 17 Alkaline Phosphatase 89 Creatine Kinase 124 Troponin I 0.05 Total Protein 7.0 Albumin 3.5 03/16/16 06:00 WBC 13.2 H D RBC 4.59 Hgb 12.4 Hct 37.8 MCV 82.3 MCHC 32.8 RDW 14.7 MPV 9.3 Neutrophils % 88.5 H Lymphocytes % 6.0 L Monocytes % 5.3 Eosinophils % 0.0 Basophils % 0.2 Sodium Potassium Chloride Carbon Dioxide Anion Gap BUN Creatinine Creat Clearance w eGFR POC Glucometer Random Glucose Calcium Total Bilirubin Direct Bilirubin AST ALT Alkaline Phosphatase Creatine Kinase Troponin I Total Protein Albumin Assessment/Plan Fever,Leukocytosis improving UTI,urine cul growing non lactose fermenting gnb Hypokalemia CAD,H/O [place],S/P stent Elevated bilirubin Hypertension,Hyperlipidemia DM PLAN Will f/u urine and blood culture Continue antibiotics Continue home MEDS Abdominal sonogram renal u/s report will f/u will f/u ID,Cardiology,and GI rec Will f/u K and WBC
[2016-03-16] MEDS ORDERED: LEVOFLOXACIN 500 MG IVPB 100 ML IVPB SCH (10:00)
[2016-03-16] MEDS ORDERED: POTASSIUM CHLORIDE TABS 20 MEQ TABLET.ER (FP) PO ONE (10:15)
[2016-03-16 10:25] LABS: PLATELET COUNT 145 K/MM3 (134-434)
[2016-03-16 10:26] LABS: PLATELET ESTIMATE ADEQUATE (NORMAL)
--- NOTE | 2016-03-16 12:04 | PN ---
Progress Note, Physician Chief Complaint: Not in distress History of Present Illness: Patient was seen and examined. Awake and alert. Chart was reviewed Denies chest pain or shortness of breath Febrile - Current Medication List Current Medications: Active Medications Acetaminophen (Tylenol -) 650 mg PO Q6H PRN PRN Reason: FEVER Last Admin: 03/16/16 09:44 Dose: 650 mg Amlodipine Besylate (Norvasc -) 10 mg PO DAILY [facility] Last Admin: 03/16/16 09:32 Dose: 10 mg Aspirin (Asa -) 81 mg PO DAILY [facility] Last Admin: 03/16/16 09:32 Dose: 81 mg Atorvastatin Calcium (Lipitor -) 40 mg PO HS [facility] Last Admin: 03/15/16 22:46 Dose: 40 mg Meropenem 1 gm/ Dextrose 100 mls @ 250 mls/hr IVPB Q8H-IV [facility] Last Admin: 03/16/16 09:32 Dose: 250 mls/hr Losartan Potassium (Cozaar -) 100 mg PO DAILY [facility] Last Admin: 03/16/16 09:32 Dose: 100 mg Metformin HCl (Glucophage -) 1,000 mg PO AM [facility] Last Admin: 03/16/16 09:08 Dose: Not Given Metoprolol Succinate (Toprol Xl -) 100 mg PO DAILY [facility] Last Admin: 03/16/16 09:32 Dose: 100 mg Tamsulosin HCl (Flomax -) 0.4 mg PO DAILY@0830 [facility] Last Admin: 03/16/16 09:33 Dose: 0.4 mg Ticagrelor (Brilinta -) 90 mg PO BID [facility] Last Admin: 03/16/16 09:33 Dose: 90 mg - Objective Vital Signs: Vital Signs Temperature 102.2 F H 03/16/16 10:00 Pulse Rate 98 H 03/16/16 10:00 Respiratory Rate 18 03/16/16 10:00 Blood Pressure 148/64 03/16/16 10:00 O2 Sat by Pulse Oximetry (%) 98 03/15/16 21:00 Neck: Yes: Supple Cardiovascular: Yes: Regular Rate and Rhythm, S1, S2 Respiratory: Yes: CTA Bilaterally Gastrointestinal: Yes: Normal Bowel Sounds, Soft. No: Tenderness Edema: No Labs: CBC, BMP 03/16/16 06:00 03/16/16 06:00 Problem List - Problems (1) Coronary artery disease Code(s): I25.10 - ATHSCL HEART DISEASE OF [place] CORONARY ARTERY W/O ANG PCTRS Qualifiers: Coronary Disease-Associated Artery/Lesion type: [place] artery [place] vs. transplanted heart: [place] heart Associated angina: without angina Qualified Code(s): I25.10 - Atherosclerotic heart disease of [place] coronary artery without angina pectoris (2) Demand ischemia Code(s): I24.8 - OTHER FORMS OF ACUTE ISCHEMIC HEART DISEASE (3) Diabetes mellitus Code(s): E11.9 - TYPE 2 DIABETES MELLITUS WITHOUT COMPLICATIONS Qualifiers: Diabetes mellitus type: type 2 Diabetes mellitus complication detail: with microalbuminuria Diabetes mellitus halfway insulin use: without cheese processor use (4) Fever in adult Code(s): R50.9 - FEVER, UNSPECIFIED (5) History of myocardial infarction Code(s): I25.2 - OLD MYOCARDIAL INFARCTION (6) Hyperlipidemia associated with type 2 diabetes mellitus Code(s): E11.69 - TYPE 2 DIABETES MELLITUS WITH OTHER SPECIFIED COMPLICATION E78.5 - HYPERLIPIDEMIA, UNSPECIFIED (7) 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 Leukocytosis, UTI and underlying BPH 2. CAD h/o [place], PCI (stent) - demand ischemia 3. PAF now in sinus rhythm 4. CKD with hypokalemia 5. Type 2 DM 6. Hyperlipidemia 7. Palpitations h/o PVC 8. Diastolic dysfunction with h/o failure PLAN: 1. Trend cardiac enzyme (peaked) 2. Antibiotic coverage per ID. 3. Continue ASA 81 mg QD, Brilinta 90 mg BID, Lipitor 40 mg QD, Toprol XL 100 mg QD, Norvasc 10 mg QD, and Losartan 100 ,g QD 4. Monitor electrolytes and replete as needed. K supplement Further plans are to follow Xavi Greenberg MD
--- NOTE | 2016-03-16 13:17 | PN ---
Progress Note, Physician History of Present Illness: starting to feel better patient spiking fevers still - Current Medication List Current Medications: Active Medications Acetaminophen (Tylenol -) 650 mg PO Q6H PRN PRN Reason: FEVER Last Admin: 03/16/16 09:44 Dose: 650 mg Amlodipine Besylate (Norvasc -) 10 mg PO DAILY [facility] Last Admin: 03/16/16 09:32 Dose: 10 mg Aspirin (Asa -) 81 mg PO DAILY [facility] Last Admin: 03/16/16 09:32 Dose: 81 mg Atorvastatin Calcium (Lipitor -) 40 mg PO HS [facility] Last Admin: 03/15/16 22:46 Dose: 40 mg Meropenem 1 gm/ Dextrose 100 mls @ 250 mls/hr IVPB Q8H-IV [facility] Last Admin: 03/16/16 09:32 Dose: 250 mls/hr Losartan Potassium (Cozaar -) 100 mg PO DAILY [facility] Last Admin: 03/16/16 09:32 Dose: 100 mg Metformin HCl (Glucophage -) 1,000 mg PO AM [facility] Last Admin: 03/16/16 09:08 Dose: Not Given Metoprolol Succinate (Toprol Xl -) 100 mg PO DAILY [facility] Last Admin: 03/16/16 09:32 Dose: 100 mg Tamsulosin HCl (Flomax -) 0.4 mg PO DAILY@0830 [facility] Last Admin: 03/16/16 09:33 Dose: 0.4 mg Ticagrelor (Brilinta -) 90 mg PO BID [facility] Last Admin: 03/16/16 09:33 Dose: 90 mg - Objective Vital Signs: Vital Signs Temperature 102.2 F H 03/16/16 10:00 Pulse Rate 98 H 03/16/16 10:00 Respiratory Rate 18 03/16/16 10:00 Blood Pressure 148/64 03/16/16 10:00 O2 Sat by Pulse Oximetry (%) 98 03/15/16 21:00 Constitutional: Yes: No Distress, Calm Neck: Yes: Supple Cardiovascular: Yes: Regular Rate and Rhythm Respiratory: Yes: Regular, CTA Bilaterally Gastrointestinal: Yes: Normal Bowel Sounds, Soft Musculoskeletal: Yes: WNL Extremities: Yes: WNL Neurological: Yes: Alert, Oriented Psychiatric: Yes: Alert Labs: CBC, BMP 03/16/16 06:00 03/16/16 06:00 INR, PTT INR 1.16 (0.82-1.09) H 03/14/16 23:30 Assessment/Plan Problem List - Problems (1) Fever in adult Code(s): R50.9 - FEVER, UNSPECIFIED (2) Hypokalemia Code(s): E87.6 - HYPOKALEMIA (3) UTI (urinary tract infection) Code(s): N39.0 - URINARY TRACT INFECTION, SITE NOT SPECIFIED (4) Coronary artery disease Code(s): I25.10 - ATHSCL HEART DISEASE OF [place] CORONARY ARTERY W/O ANG PCTRS Qualifiers: Coronary Disease-Associated Artery/Lesion type: [place] artery [place] vs. 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 Code(s): I11.9 - HYPERTENSIVE HEART DISEASE WITHOUT HEART FAILURE (8) Hyperlipidemia associated with type 2 diabetes mellitus Code(s): E11.69 - TYPE 2 DIABETES MELLITUS WITH OTHER SPECIFIED COMPLICATION E78.5 - HYPERLIPIDEMIA, UNSPECIFIED (9) Diabetes mellitus Code(s): E11.9 - TYPE 2 DIABETES MELLITUS WITHOUT COMPLICATIONS Qualifiers: Diabetes mellitus type: type 2 Diabetes mellitus complication detail: with microalbuminuria Diabetes mellitus correction insulin use: without intermediate accountant use (10) Leukocytosis Code(s): D72.829 - ELEVATED WHITE BLOOD CELL COUNT, UNSPECIFIED Qualifiers: Leukocytosis type: unspecified Qualified Code(s): D72.829 - Elevated white blood cell count, unspecified (11) Demand ischemia Code(s): I24.8 - OTHER FORMS OF ACUTE ISCHEMIC HEART DISEASE 12 r/o prostatitis 13 sepsis 14 leukocytosis with aptient having fevers and his chronic bph i am worried patient might having prostatitis i am also going to get u/s of the kidneys plan continue abx await for identification of organism u/s result noted
--- NOTE | 2016-03-16 13:23 | PN ---
Progress Note (short form) - Note Progress Note: Gallstones noted on US. i suspect this is an incidental finding. Predominantly indirect hyperbilirubinemia. His eleveated hyperbilirubinemia seems to be chronic. This makes me suspect that he has gilbert's with acute elevation from his baseline in the seting of acute infection.
[2016-03-16] MEDS ORDERED: VANCOMYCIN 1 GRAM (PRE-DOCKED) 1,000 MG/250 ML BAG IVPB ONE ×2 (18:30→20:15)
[2016-03-16] MEDS: ATORVASTATIN CA 40 MG TABLET (FP) PO SCH (22:00)
[2016-03-17] MEDS: MEROPENEM 1 GM in DEXTROSE 5%-WATER - 100 ML IVPB SCH ×3 (00:59→17:53)
[2016-03-17] MEDS: metFORMIN HCL 500 MG TABLET (FP) PO SCH (06:49)
[2016-03-17 07:35] LABS: BASOPHIL 0.3 % (0-2.0); EOSINOPHIL 0.1 % (0-4.5); MCH 27.2 pg (25.7-33.7); MCHC 33.7 g/dl (32.0-35.9); MEAN CELL VOLUME 80.8 fl (80-96); MEAN PLT VOLUME 9.1 fl (7.5-11.1); NEUTROPHILS 76.8 % (42.8-82.8); PLATELET COUNT 150 K/MM3 (134-434); RDW 14.7 % (11.9-15.9); WHITE BLOOD COUNT 7.4 K/mm3 (4.0-10.0)
[2016-03-17 08:22] LABS: ALBUMIN 3.3 g/dl (3.4-5.0); BILIRUBIN,TOTAL 3.6 mg/dL (0.2-1.0); CALCIUM 8.7 mg/dL (8.5-10.1); CREATININE 1.2 mg/dL (0.7-1.3); TOT PROT 6.9 g/dl (6.4-8.2)
[2016-03-17] MEDS: TAMSULOSIN HCL 0.4 MG CAP.ER.24H (FP) PO SCH (08:33)
--- NOTE | 2016-03-17 09:43 | PN ---
Progress Note, Physician Chief Complaint: Pt lying in bed,afebrile pt got one dose of vanco yesterday Cardiology,ID consult ordered Rpt elevated bilirubin noted.Pt had h/o elevated bilirubin in the past,GI evaluation noted WBC coming down 7.4 abdominal sono shows gall bladder stones,no evidence of Cholecystitis renal sonogram no kidney stones,mass or perinenhric collection - Current Medication List Current Medications: Active Medications Acetaminophen (Tylenol -) 650 mg PO Q6H PRN PRN Reason: FEVER Last Admin: 03/16/16 16:54 Dose: 650 mg Amlodipine Besylate (Norvasc -) 10 mg PO DAILY [facility] Last Admin: 03/16/16 09:32 Dose: 10 mg Aspirin (Asa -) 81 mg PO DAILY [facility] Last Admin: 03/16/16 09:32 Dose: 81 mg Atorvastatin Calcium (Lipitor -) 40 mg PO HS [facility] Last Admin: 03/16/16 22:00 Dose: 40 mg Meropenem 1 gm/ Dextrose 100 mls @ 250 mls/hr IVPB Q8H-IV [facility] Last Admin: 03/17/16 00:59 Dose: 250 mls/hr Losartan Potassium (Cozaar -) 100 mg PO DAILY [facility] Last Admin: 03/16/16 09:32 Dose: 100 mg Metformin HCl (Glucophage -) 1,000 mg PO AM [facility] Last Admin: 03/17/16 06:49 Dose: 1,000 mg Metoprolol Succinate (Toprol Xl -) 100 mg PO DAILY [facility] Last Admin: 03/16/16 09:32 Dose: 100 mg Potassium Chloride (K-Dur -) 20 meq PO ONCE ONE Stop: 03/17/16 09:35 Tamsulosin HCl (Flomax -) 0.4 mg PO DAILY@0830 [facility] Last Admin: 03/17/16 08:33 Dose: 0.4 mg Ticagrelor (Brilinta -) 90 mg PO BID [facility] Last Admin: 03/16/16 22:03 Dose: 90 mg - Objective Vital Signs: Vital Signs Temperature 98.2 F 03/17/16 09:00 Pulse Rate 87 03/17/16 09:00 Respiratory Rate 18 03/17/16 09:00 Blood Pressure 146/87 03/17/16 09:00 O2 Sat by Pulse Oximetry (%) 98 03/16/16 14:08 Constitutional: Yes: No Distress Eyes: Yes: Conjunctiva Clear HENT: Yes: Atraumatic, Normocephalic Neck: Yes: Supple, Trachea Midline Cardiovascular: Yes: Regular Rate and Rhythm Respiratory: Yes: Regular, CTA Bilaterally Gastrointestinal: Yes: Normal Bowel Sounds, Soft Musculoskeletal: Yes: WNL Extremities: Yes: WNL Edema: No Peripheral Pulses WNL: Yes Neurological: Yes: WNL, Alert, Oriented ...Motor Strength: WNL Psychiatric: Yes: WNL, Alert Labs: CBC, BMP 03/17/16 06:30 03/17/16 06:30 INR, PTT INR 1.16 (0.82-1.09) H 03/14/16 23:30 Laboratory Results - last 24 hr 03/16/16 03/17/16 03/17/16 06:00 05:48 06:30 WBC 7.4 D RBC 4.60 Hgb 12.5 Hct 37.2 MCV 80.8 MCHC 33.7 RDW 14.7 Plt Count 145 150 MPV 9.1 Neutrophils % 76.8 Lymphocytes % 12.5 D Monocytes % 10.3 H D Eosinophils % 0.1 D Basophils % 0.3 Differential Comment Slide scanned Platelet Estimate Adequate Sodium Potassium Chloride Carbon Dioxide Anion Gap BUN Creatinine Creat Clearance w eGFR POC Glucometer 133 Random Glucose Calcium Total Bilirubin AST ALT Alkaline Phosphatase Total Protein Albumin 03/17/16 06:30 WBC RBC Hgb Hct MCV MCHC RDW Plt Count MPV Neutrophils % Lymphocytes % Monocytes % Eosinophils % Basophils % Differential Comment Platelet Estimate Sodium 138 Potassium 3.4 L Chloride 101 Carbon Dioxide 28 Anion Gap 9 BUN 14 Creatinine 1.2 Creat Clearance w eGFR 59.68 POC Glucometer Random Glucose 135 H Calcium 8.7 Total Bilirubin 3.6 H D AST 18 D ALT 19 Alkaline Phosphatase 79 Total Protein 6.9 Albumin 3.3 L - ....Imaging Ultrasound: Report Reviewed Assessment/Plan ,Leukocytosis improving,afebrile UTI,urine cul growing non lactose fermenting gnb and grp D strep blood culture negative Hypokalemia CAD,H/O [place],S/P stent Elevated bilirubin Hypertension,Hyperlipidemia DM PLAN K suppliment Continue antibiotics Continue home MEDS will f/u ID,Cardiology,and GI rec Will f/u K and WBC urology consult
[2016-03-17] MEDS ORDERED: PT OWN MED DRAWER 7, Y5N ONE ×2 (09:56→16:16)
[2016-03-17] MEDS: ASPIRIN 81 MG CHEWABLE TABLETS PO SCH (09:57)
[2016-03-17] MEDS: amLODIPine BESYLATE 10 MG TABLET (FP) PO SCH (09:57)
[2016-03-17] MEDS: METOPROLOL SUCCINATE 100 MG TAB.SR.24H (FP) PO SCH (09:57)
[2016-03-17] MEDS: LOSARTAN POTASSIUM 50 MG TABLET (FP) PO SCH (09:58)
[2016-03-17] MEDS: TICAGRELOR 90 MG TABLET PO SCH ×2 (09:59→22:25)
[2016-03-17] MEDS ORDERED: POTASSIUM CHLORIDE TABS 20 MEQ TABLET.ER (FP) PO ONE (10:10)
--- NOTE | 2016-03-17 13:09 | PN ---
Progress Note, Physician History of Present Illness: Fever, chills, myalgias, burning on urination, suprapubic pain without flank pain improving on abx course. - Current Medication List Current Medications: Active Medications Acetaminophen (Tylenol -) 650 mg PO Q6H PRN PRN Reason: FEVER Last Admin: 03/16/16 16:54 Dose: 650 mg Amlodipine Besylate (Norvasc -) 10 mg PO DAILY [facility] Last Admin: 03/17/16 09:57 Dose: 10 mg Aspirin (Asa -) 81 mg PO DAILY [facility] Last Admin: 03/17/16 09:57 Dose: 81 mg Atorvastatin Calcium (Lipitor -) 40 mg PO HS [facility] Last Admin: 03/16/16 22:00 Dose: 40 mg Meropenem 1 gm/ Dextrose 100 mls @ 250 mls/hr IVPB Q8H-IV [facility] Last Admin: 03/17/16 09:57 Dose: 250 mls/hr Losartan Potassium (Cozaar -) 100 mg PO DAILY [facility] Last Admin: 03/17/16 09:58 Dose: 100 mg Metformin HCl (Glucophage -) 1,000 mg PO AM [facility] Last Admin: 03/17/16 06:49 Dose: 1,000 mg Metoprolol Succinate (Toprol Xl -) 100 mg PO DAILY [facility] Last Admin: 03/17/16 09:57 Dose: 100 mg Tamsulosin HCl (Flomax -) 0.4 mg PO DAILY@0830 [facility] Last Admin: 03/17/16 08:33 Dose: 0.4 mg Ticagrelor (Brilinta -) 90 mg PO BID [facility] Last Admin: 03/17/16 09:59 Dose: 90 mg - Objective Vital Signs: Vital Signs Temperature 98.2 F 03/17/16 09:00 Pulse Rate 87 03/17/16 09:00 Respiratory Rate 18 03/17/16 09:00 Blood Pressure 146/87 03/17/16 09:00 O2 Sat by Pulse Oximetry (%) 98 03/16/16 14:08 Constitutional: Yes: No Distress, Calm Neck: Yes: Supple Cardiovascular: Yes: Regular Rate and Rhythm Respiratory: Yes: Regular, Diminished Gastrointestinal: Yes: Normal Bowel Sounds, Soft, Abdomen, Obese Edema: No Labs: CBC, BMP 03/17/16 06:30 03/17/16 06:30 INR, PTT INR 1.16 (0.82-1.09) H 03/14/16 23:30 Problem List - Problems (1) Fever in adult Code(s): R50.9 - FEVER, UNSPECIFIED (2) Hypokalemia Code(s): E87.6 - HYPOKALEMIA (3) UTI (urinary tract infection) Code(s): N39.0 - URINARY TRACT INFECTION, SITE NOT SPECIFIED (4) Coronary artery disease Code(s): I25.10 - ATHSCL HEART DISEASE OF [place] CORONARY ARTERY W/O ANG PCTRS Qualifiers: Coronary Disease-Associated Artery/Lesion type: [place] artery [place] vs. 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 Code(s): I11.9 - HYPERTENSIVE HEART DISEASE WITHOUT HEART FAILURE (8) Hyperlipidemia associated with type 2 diabetes mellitus Code(s): E11.69 - TYPE 2 DIABETES MELLITUS WITH OTHER SPECIFIED COMPLICATION E78.5 - HYPERLIPIDEMIA, UNSPECIFIED (9) Diabetes mellitus Code(s): E11.9 - TYPE 2 DIABETES MELLITUS WITHOUT COMPLICATIONS Qualifiers: Diabetes mellitus type: type 2 Diabetes mellitus complication detail: with microalbuminuria Diabetes mellitus correction insulin use: without correction use (10) Leukocytosis Code(s): D72.829 - ELEVATED WHITE BLOOD CELL COUNT, UNSPECIFIED Qualifiers: Leukocytosis type: unspecified Qualified Code(s): D72.829 - Elevated white blood cell count, unspecified (11) Demand ischemia Code(s): I24.8 - OTHER FORMS OF ACUTE ISCHEMIC HEART DISEASE Assessment/Plan 09/30/2015 cLVH with normal LV fxn without sig valve abnl 1. Leukocytosis, UTI and underlying BPH 2. CAD h/o [place], PCI (stent) - demand ischemia 3. PAF now in sinus rhythm 4. CKD with hypokalemia 5. Type 2 DM 6. Hyperlipidemia 7. Palpitations h/o PVC 8. Diastolic dysfunction with h/o failure PLAN: 1. Trend cardiac enzyme (peaked) 2. Antibiotic coverage per ID, narrow spectrum per C&S. 3. Continue ASA 81 mg QD, Brilinta 90 mg BID, Lipitor 40 mg QD, Toprol XL 100 mg QD, Norvasc 10 mg QD, and Losartan 100 mg QD 4. Monitor electrolytes and replete as needed. K supplement
--- NOTE | 2016-03-17 15:21 | PN ---
Progress Note, Physician History of Present Illness: starting to feel better still having low grade fever awaiting for urology to see him - Current Medication List Current Medications: Active Medications Acetaminophen (Tylenol -) 650 mg PO Q6H PRN PRN Reason: FEVER Last Admin: 03/16/16 16:54 Dose: 650 mg Amlodipine Besylate (Norvasc -) 10 mg PO DAILY [facility] Last Admin: 03/17/16 09:57 Dose: 10 mg Aspirin (Asa -) 81 mg PO DAILY [facility] Last Admin: 03/17/16 09:57 Dose: 81 mg Atorvastatin Calcium (Lipitor -) 40 mg PO HS [facility] Last Admin: 03/16/16 22:00 Dose: 40 mg Meropenem 1 gm/ Dextrose 100 mls @ 250 mls/hr IVPB Q8H-IV [facility] Last Admin: 03/17/16 09:57 Dose: 250 mls/hr Losartan Potassium (Cozaar -) 100 mg PO DAILY [facility] Last Admin: 03/17/16 09:58 Dose: 100 mg Metformin HCl (Glucophage -) 1,000 mg PO AM [facility] Last Admin: 03/17/16 06:49 Dose: 1,000 mg Metoprolol Succinate (Toprol Xl -) 100 mg PO DAILY [facility] Last Admin: 03/17/16 09:57 Dose: 100 mg Tamsulosin HCl (Flomax -) 0.4 mg PO DAILY@0830 [facility] Last Admin: 03/17/16 08:33 Dose: 0.4 mg Ticagrelor (Brilinta -) 90 mg PO BID [facility] Last Admin: 03/17/16 09:59 Dose: 90 mg - Objective Vital Signs: Vital Signs Temperature 98.2 F 03/17/16 09:00 Pulse Rate 87 03/17/16 09:00 Respiratory Rate 18 03/17/16 09:00 Blood Pressure 146/87 03/17/16 09:00 O2 Sat by Pulse Oximetry (%) 98 03/16/16 14:08 Constitutional: Yes: No Distress, Calm Cardiovascular: Yes: Regular Rate and Rhythm Respiratory: Yes: Regular, CTA Bilaterally Gastrointestinal: Yes: Normal Bowel Sounds, Soft Musculoskeletal: Yes: WNL Extremities: Yes: WNL Neurological: Yes: Alert, Oriented Psychiatric: Yes: Alert Labs: CBC, BMP 03/17/16 06:30 03/17/16 06:30 INR, PTT INR 1.16 (0.82-1.09) H 03/14/16 23:30 Assessment/Plan Problem List - Problems (1) Fever in adult Code(s): R50.9 - FEVER, UNSPECIFIED (2) Hypokalemia Code(s): E87.6 - HYPOKALEMIA (3) UTI (urinary tract infection) Code(s): N39.0 - URINARY TRACT INFECTION, SITE NOT SPECIFIED (4) Coronary artery disease Code(s): I25.10 - ATHSCL HEART DISEASE OF [place] CORONARY ARTERY W/O ANG PCTRS Qualifiers: Coronary Disease-Associated Artery/Lesion type: [place] artery [place] vs. 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 Code(s): I11.9 - HYPERTENSIVE HEART DISEASE WITHOUT HEART FAILURE (8) Hyperlipidemia associated with type 2 diabetes mellitus Code(s): E11.69 - TYPE 2 DIABETES MELLITUS WITH OTHER SPECIFIED COMPLICATION E78.5 - HYPERLIPIDEMIA, UNSPECIFIED (9) Diabetes mellitus Code(s): E11.9 - TYPE 2 DIABETES MELLITUS WITHOUT COMPLICATIONS Qualifiers: Diabetes mellitus type: type 2 Diabetes mellitus complication detail: with microalbuminuria Diabetes mellitus intermediate insulin use: without exterminator helper use (10) Leukocytosis Code(s): D72.829 - ELEVATED WHITE BLOOD CELL COUNT, UNSPECIFIED Qualifiers: Leukocytosis type: unspecified Qualified Code(s): D72.829 - Elevated white blood cell count, unspecified (11) Demand ischemia Code(s): I24.8 - OTHER FORMS OF ACUTE ISCHEMIC HEART DISEASE 12 r/o prostatitis 13 sepsis 14 leukocytosis with aptient having fevers and his chronic bph i am worried patient might having prostatitis i am also going to get u/s of the kidneys plan continue abx organism noted added ampicillin to the regimen will await for urology input
[2016-03-17] MEDS: AMPICILLIN - 1 GM in SODIUM CHLORIDE 100 ML IVPB SCH (16:55)
[2016-03-17] MEDS: ACETAMINOPHEN 325 MG TABLET (FP) PO PRN (17:52)
[2016-03-17] MEDS: ATORVASTATIN CA 40 MG TABLET (FP) PO SCH (21:52)
[2016-03-18] MEDS: AMPICILLIN - 1 GM in SODIUM CHLORIDE 100 ML IVPB SCH ×3 (01:21→17:35)
[2016-03-18] MEDS: MEROPENEM 1 GM in DEXTROSE 5%-WATER - 100 ML IVPB SCH ×3 (02:22→17:35)
[2016-03-18] MEDS: metFORMIN HCL 500 MG TABLET (FP) PO SCH (06:44)
[2016-03-18 07:20] LABS: BASOPHIL 0.4 % (0-2.0); EOSINOPHIL 3.4 % (0-4.5); MCHC 33.4 g/dl (32.0-35.9); MEAN PLT VOLUME 8.6 fl (7.5-11.1); NEUTROPHILS 61.7 % (42.8-82.8); PLATELET COUNT 149 K/MM3 (134-434); RDW 14.5 % (11.9-15.9); WHITE BLOOD COUNT 5.9 K/mm3 (4.0-10.0)
[2016-03-18 08:54] LABS: ALK PHOS 72 U/L (45-117); ANION GAP 10 (8-16); BILIRUBIN,TOTAL 2.4 mg/dL (0.2-1.0); CO2 29 mmol/L (21-32); CREATININE 0.8 mg/dL (0.7-1.3); GLUCOSE,RANDOM 144 mg/dL (74-106); SGOT/AST 27 U/L (15-37); SGPT/ALT 32 U/L (12-78); TOT PROT 6.4 g/dl (6.4-8.2)
--- NOTE | 2016-03-18 09:46 | PN ---
Progress Note, Physician Chief Complaint: Pt lying in bed,afebrile pt is on ampicillin and meropenam Cardiology,ID consult ordered Rpt bilirubin coming down WBC coming down 5.9 abdominal sono shows gall bladder stones,no evidence of Cholecystitis renal sonogram no kidney stones,mass or perinenhric collection urology consult pending blood cul negative,urine cul shows proteus mirabilis - Current Medication List Current Medications: Active Medications Acetaminophen (Tylenol -) 650 mg PO Q6H PRN PRN Reason: FEVER Last Admin: 03/17/16 17:52 Dose: 650 mg Amlodipine Besylate (Norvasc -) 10 mg PO DAILY [facility] Last Admin: 03/17/16 09:57 Dose: 10 mg Aspirin (Asa -) 81 mg PO DAILY [facility] Last Admin: 03/17/16 09:57 Dose: 81 mg Atorvastatin Calcium (Lipitor -) 40 mg PO HS [facility] Last Admin: 03/17/16 21:52 Dose: 40 mg Meropenem 1 gm/ Dextrose 100 mls @ 250 mls/hr IVPB Q8H-IV [facility] Last Admin: 03/18/16 02:22 Dose: 250 mls/hr Ampicillin Sodium 1 gm/ Sodium (Chloride) 100 mls @ 200 mls/hr IVPB Q8H-IV [facility] Last Admin: 03/18/16 01:21 Dose: 200 mls/hr Losartan Potassium (Cozaar -) 100 mg PO DAILY [facility] Last Admin: 03/17/16 09:58 Dose: 100 mg Metformin HCl (Glucophage -) 1,000 mg PO AM [facility] Last Admin: 03/18/16 06:44 Dose: 1,000 mg Metoprolol Succinate (Toprol Xl -) 100 mg PO DAILY [facility] Last Admin: 03/17/16 09:57 Dose: 100 mg Tamsulosin HCl (Flomax -) 0.4 mg PO DAILY@0830 [facility] Last Admin: 03/17/16 08:33 Dose: 0.4 mg Ticagrelor (Brilinta -) 90 mg PO BID [facility] Last Admin: 03/17/16 22:25 Dose: 90 mg - Objective Vital Signs: Vital Signs Temperature 99.2 F 03/18/16 06:00 Pulse Rate 75 03/18/16 06:00 Respiratory Rate 20 03/18/16 06:00 Blood Pressure 150/71 03/18/16 06:00 O2 Sat by Pulse Oximetry (%) 98 03/17/16 21:00 Constitutional: Yes: No Distress Eyes: Yes: Conjunctiva Clear HENT: Yes: Atraumatic, Normocephalic Neck: Yes: Supple Cardiovascular: Yes: Regular Rate and Rhythm Respiratory: Yes: Regular, CTA Bilaterally Gastrointestinal: Yes: Normal Bowel Sounds, Soft Musculoskeletal: Yes: WNL Edema: No Peripheral Pulses WNL: Yes Neurological: Yes: WNL, Alert Psychiatric: Yes: WNL, Alert Labs: CBC, BMP 03/18/16 06:00 03/18/16 06:00 INR, PTT INR 1.16 (0.82-1.09) H 03/14/16 23:30 Assessment/Plan ,Leukocytosis improving,afebrile sepsis,r/o prostitis UTI,urine cul growing proteus mirabilis and grp D strep blood culture negative CAD,H/O PR,S/P stent Elevated bilirubin Hypertension,Hyperlipidemia DM PLAN Continue antibiotics Continue home MEDS will f/u ID,Cardiology,and GI rec urology consult noted
--- NOTE | 2016-03-18 10:47 | CONSULT ---
Consult Consult Specialty:: PT SEEN AND EXAMINED - History of Present Illness Chief Complaint: PT PRESENTED TO ER WITH UROSEPSIS, NOCT X 3, FREQ, URG. PE: 3 PLUS FIRM NT PROSTATE. TEST SOFT N/T , NO MASSES. PLAN: UROLOGICALLY NO INTERVENTION AT THIS TIME WILL NEED OUTPT W/U AND POSSIBLE LASER VAPORIZATION OF PROSTATE - Past Medical History Cardio/Vascular: Yes: CAD, HTN, Hyperlipdemia, [place] - Past Surgical History Past Surgical History: Yes: Stent - Alcohol/Substance Use Hx Alcohol Use: No - Smoking History Smoking history: Never smoked Have you smoked in the past 12 months: No Home Medications - Allergies Allergies/Adverse Reactions: Allergies Allergy/AdvReac Type Severity Reaction Status Date / Time No Known Allergies Allergy Verified 03/14/16 23:23 - Home Medications Home Medications: Ambulatory Orders Metformin HCl [Glucophage] 1 tab PO DAILY 07/04/13 Metoprolol Succinate [Toprol XL -] 1 tab PO DAILY 07/04/13 Tamsulosin HCl 0.4 mg PO DAILY 06/15/14 Amlodipine Besylate [Norvasc -] 10 mg PO DAILY 06/16/14 Atorvastatin Ca [Lipitor] 40 mg PO HS 06/16/14 Losartan Potassium [Cozaar] 100 mg PO DAILY 06/16/14 Acetaminophen [Tylenol] 2 tab PO QID PRN 03/14/16 Aspirin [ASA -] 81 mg PO DAILY 03/14/16 Ticagrelor [Brilinta] 90 mg PO BID 03/14/16 Physical Exam- Vital Signs: Vital Signs Temperature 99.2 F 03/18/16 06:00 Pulse Rate 75 03/18/16 06:00 Respiratory Rate 20 03/18/16 06:00 Blood Pressure 150/71 03/18/16 06:00 O2 Sat by Pulse Oximetry (%) 98 03/17/16 21:00 Labs: CBC, BMP 03/18/16 06:00 03/18/16 06:00
[2016-03-18] MEDS: ASPIRIN 81 MG CHEWABLE TABLETS PO SCH (11:00)
[2016-03-18] MEDS: TAMSULOSIN HCL 0.4 MG CAP.ER.24H (FP) PO SCH (11:00)
[2016-03-18] MEDS: METOPROLOL SUCCINATE 100 MG TAB.SR.24H (FP) PO SCH (11:00)
[2016-03-18] MEDS: LOSARTAN POTASSIUM 50 MG TABLET (FP) PO SCH (11:00)
[2016-03-18] MEDS: amLODIPine BESYLATE 10 MG TABLET (FP) PO SCH (11:00)
[2016-03-18] MEDS: TICAGRELOR 90 MG TABLET PO SCH ×2 (11:01→21:04)
--- NOTE | 2016-03-18 12:47 | PN ---
Progress Note, Physician History of Present Illness: stable no issues urology note noted - Current Medication List Current Medications: Active Medications Acetaminophen (Tylenol -) 650 mg PO Q6H PRN PRN Reason: FEVER Last Admin: 03/17/16 17:52 Dose: 650 mg Amlodipine Besylate (Norvasc -) 10 mg PO DAILY [facility] Last Admin: 03/18/16 11:00 Dose: 10 mg Aspirin (Asa -) 81 mg PO DAILY [facility] Last Admin: 03/18/16 11:00 Dose: 81 mg Atorvastatin Calcium (Lipitor -) 40 mg PO HS [facility] Last Admin: 03/17/16 21:52 Dose: 40 mg Meropenem 1 gm/ Dextrose 100 mls @ 250 mls/hr IVPB Q8H-IV [facility] Last Admin: 03/18/16 10:59 Dose: 250 mls/hr Ampicillin Sodium 1 gm/ Sodium (Chloride) 100 mls @ 200 mls/hr IVPB Q8H-IV [facility] Last Admin: 03/18/16 10:59 Dose: 200 mls/hr Losartan Potassium (Cozaar -) 100 mg PO DAILY [facility] Last Admin: 03/18/16 11:00 Dose: 100 mg Metformin HCl (Glucophage -) 1,000 mg PO AM [facility] Last Admin: 03/18/16 06:44 Dose: 1,000 mg Metoprolol Succinate (Toprol Xl -) 100 mg PO DAILY [facility] Last Admin: 03/18/16 11:00 Dose: 100 mg Tamsulosin HCl (Flomax -) 0.4 mg PO DAILY@0830 [facility] Last Admin: 03/18/16 11:00 Dose: 0.4 mg Ticagrelor (Brilinta -) 90 mg PO BID [facility] Last Admin: 03/18/16 11:01 Dose: 90 mg - Objective Vital Signs: Vital Signs Temperature 99.4 F 03/18/16 10:00 Pulse Rate 86 03/18/16 10:00 Respiratory Rate 18 03/18/16 10:00 Blood Pressure 148/82 03/18/16 10:00 O2 Sat by Pulse Oximetry (%) 98 03/17/16 21:00 Constitutional: Yes: No Distress, Calm Cardiovascular: Yes: Regular Rate and Rhythm Respiratory: Yes: Regular, CTA Bilaterally Musculoskeletal: Yes: WNL Extremities: Yes: WNL Neurological: Yes: Alert, Oriented Psychiatric: Yes: Alert Labs: CBC, BMP 03/18/16 06:00 03/18/16 06:00 INR, PTT INR 1.16 (0.82-1.09) H 03/14/16 23:30 Assessment/Plan Problem List - Problems (1) Fever in adult Code(s): R50.9 - FEVER, UNSPECIFIED (2) Hypokalemia Code(s): E87.6 - HYPOKALEMIA (3) UTI (urinary tract infection) Code(s): N39.0 - URINARY TRACT INFECTION, SITE NOT SPECIFIED (4) Coronary artery disease Code(s): I25.10 - ATHSCL HEART DISEASE OF [place] CORONARY ARTERY W/O ANG PCTRS Qualifiers: Coronary Disease-Associated Artery/Lesion type: [place] artery [place] vs. 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 Code(s): I11.9 - HYPERTENSIVE HEART DISEASE WITHOUT HEART FAILURE (8) Hyperlipidemia associated with type 2 diabetes mellitus Code(s): E11.69 - TYPE 2 DIABETES MELLITUS WITH OTHER SPECIFIED COMPLICATION E78.5 - HYPERLIPIDEMIA, UNSPECIFIED (9) Diabetes mellitus Code(s): E11.9 - TYPE 2 DIABETES MELLITUS WITHOUT COMPLICATIONS Qualifiers: Diabetes mellitus type: type 2 Diabetes mellitus complication detail: with microalbuminuria Diabetes mellitus terminal operations manager insulin use: without terminal operations manager use (10) Leukocytosis Code(s): D72.829 - ELEVATED WHITE BLOOD CELL COUNT, UNSPECIFIED Qualifiers: Leukocytosis type: unspecified Qualified Code(s): D72.829 - Elevated white blood cell count, unspecified (11) Demand ischemia Code(s): I24.8 - OTHER FORMS OF ACUTE ISCHEMIC HEART DISEASE 12 r/o prostatitis 13 sepsis 14 leukocytosis with aptient having fevers and his chronic bph i am worried patient might having prostatitis i am also going to get u/s of the kidneys plan continue abx continue current mgmt
--- NOTE | 2016-03-18 14:01 | PN ---
Progress Note, Physician History of Present Illness: Fever, dysuria, suprapubic pain without flank pain improved on abx course. - Current Medication List Current Medications: Active Medications Acetaminophen (Tylenol -) 650 mg PO Q6H PRN PRN Reason: FEVER Last Admin: 03/17/16 17:52 Dose: 650 mg Amlodipine Besylate (Norvasc -) 10 mg PO DAILY [facility] Last Admin: 03/18/16 11:00 Dose: 10 mg Aspirin (Asa -) 81 mg PO DAILY [facility] Last Admin: 03/18/16 11:00 Dose: 81 mg Atorvastatin Calcium (Lipitor -) 40 mg PO HS [facility] Last Admin: 03/17/16 21:52 Dose: 40 mg Meropenem 1 gm/ Dextrose 100 mls @ 250 mls/hr IVPB Q8H-IV [facility] Last Admin: 03/18/16 10:59 Dose: 250 mls/hr Ampicillin Sodium 1 gm/ Sodium (Chloride) 100 mls @ 200 mls/hr IVPB Q8H-IV [facility] Last Admin: 03/18/16 10:59 Dose: 200 mls/hr Losartan Potassium (Cozaar -) 100 mg PO DAILY [facility] Last Admin: 03/18/16 11:00 Dose: 100 mg Metformin HCl (Glucophage -) 1,000 mg PO AM [facility] Last Admin: 03/18/16 06:44 Dose: 1,000 mg Metoprolol Succinate (Toprol Xl -) 100 mg PO DAILY [facility] Last Admin: 03/18/16 11:00 Dose: 100 mg Tamsulosin HCl (Flomax -) 0.4 mg PO DAILY@0830 [facility] Last Admin: 03/18/16 11:00 Dose: 0.4 mg Ticagrelor (Brilinta -) 90 mg PO BID [facility] Last Admin: 03/18/16 11:01 Dose: 90 mg - Objective Vital Signs: Vital Signs Temperature 99.4 F 03/18/16 10:00 Pulse Rate 86 03/18/16 10:00 Respiratory Rate 18 03/18/16 10:00 Blood Pressure 148/82 03/18/16 10:00 O2 Sat by Pulse Oximetry (%) 98 03/17/16 21:00 Constitutional: Yes: No Distress, Calm Neck: Yes: Supple Cardiovascular: Yes: Regular Rate and Rhythm Respiratory: Yes: Regular, CTA Bilaterally Gastrointestinal: Yes: Normal Bowel Sounds, Soft Edema: No Labs: CBC, BMP 03/18/16 06:00 03/18/16 06:00 INR, PTT INR 1.16 (0.82-1.09) H 03/14/16 23:30 Problem List - Problems (1) Fever in adult Code(s): R50.9 - FEVER, UNSPECIFIED (2) UTI (urinary tract infection) Code(s): N39.0 - URINARY TRACT INFECTION, SITE NOT SPECIFIED (3) Coronary artery disease Code(s): I25.10 - ATHSCL HEART DISEASE OF [place] CORONARY ARTERY W/O ANG PCTRS Qualifiers: Coronary Disease-Associated Artery/Lesion type: [place] artery [place] vs. 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 Code(s): I11.9 - HYPERTENSIVE HEART DISEASE WITHOUT HEART FAILURE (7) Hyperlipidemia associated with type 2 diabetes mellitus Code(s): E11.69 - TYPE 2 DIABETES MELLITUS WITH OTHER SPECIFIED COMPLICATION E78.5 - HYPERLIPIDEMIA, UNSPECIFIED (8) Diabetes mellitus Code(s): E11.9 - TYPE 2 DIABETES MELLITUS WITHOUT COMPLICATIONS Qualifiers: Diabetes mellitus type: type 2 Diabetes mellitus complication detail: with microalbuminuria Diabetes mellitus fpc insulin use: without terminal worker use (9) Demand ischemia Code(s): I24.8 - OTHER FORMS OF ACUTE ISCHEMIC HEART DISEASE Assessment/Plan 09/30/2015 cLVH with normal LV fxn without sig valve abnl 1. Leukocytosis, UTI and underlying BPH 2. CAD h/o [place], PCI (stent) - demand ischemia 3. PAF now in sinus rhythm 4. CKD with hypokalemia 5. Type 2 DM 6. Hyperlipidemia 7. Palpitations h/o PVC 8. Diastolic dysfunction with h/o failure PLAN: 1. Antibiotic coverage per ID, narrow spectrum per C&S. 2. Continue ASA 81 mg QD, Brilinta 90 mg BID, Lipitor 40 mg QD, Toprol XL 100 mg QD, Norvasc 10 mg QD, and Losartan 100 mg QD 3. Monitor electrolytes and replete as needed. K supplement
[2016-03-18] MEDS ORDERED: PT OWN MED DRAWER 7, Y5N ONE ×2 (17:08→20:24)
[2016-03-18] MEDS: ATORVASTATIN CA 40 MG TABLET (FP) PO SCH (21:04)
[2016-03-19] MEDS: MEROPENEM 1 GM in DEXTROSE 5%-WATER - 100 ML IVPB SCH ×3 (01:28→17:43)
[2016-03-19] MEDS: AMPICILLIN - 1 GM in SODIUM CHLORIDE 100 ML IVPB SCH ×3 (02:47→17:05)
[2016-03-19] MEDS: metFORMIN HCL 500 MG TABLET (FP) PO SCH (06:17)
[2016-03-19] MEDS: TAMSULOSIN HCL 0.4 MG CAP.ER.24H (FP) PO SCH (08:11)
[2016-03-19 08:23] LABS: MCH 27.1 pg (25.7-33.7); MCHC 33.7 g/dl (32.0-35.9); MEAN CELL VOLUME 80.3 fl (80-96); MEAN PLT VOLUME 8.4 fl (7.5-11.1); PLATELET COUNT 167 K/MM3 (134-434); RDW 14.5 % (11.9-15.9); WHITE BLOOD COUNT 5.8 K/mm3 (4.0-10.0)
[2016-03-19 08:40] LABS: ALBUMIN 2.8 g/dl (3.4-5.0); ANION GAP 9 (8-16); BILIRUBIN,TOTAL 1.9 mg/dL (0.2-1.0); CALCIUM 8.5 mg/dL (8.5-10.1); CO2 28 mmol/L (21-32); CREATININE 0.8 mg/dL (0.7-1.3); GLUCOSE,RANDOM 140 mg/dL (74-106); SGOT/AST 31 U/L (15-37)
[2016-03-19 08:42] LABS: ALK PHOS 68 U/L (45-117); SGPT/ALT 38 U/L (12-78)
[2016-03-19] MEDS ORDERED: PT OWN MED DRAWER 7, Y5N ONE ×3 (09:00→21:35)
[2016-03-19] MEDS: TICAGRELOR 90 MG TABLET PO SCH ×2 (09:04→22:01)
[2016-03-19] MEDS: ASPIRIN 81 MG CHEWABLE TABLETS PO SCH (09:04)
[2016-03-19] MEDS: amLODIPine BESYLATE 10 MG TABLET (FP) PO SCH (09:05)
[2016-03-19] MEDS: METOPROLOL SUCCINATE 100 MG TAB.SR.24H (FP) PO SCH (09:05)
[2016-03-19] MEDS: LOSARTAN POTASSIUM 50 MG TABLET (FP) PO SCH (09:05)
--- NOTE | 2016-03-19 09:49 | PN ---
Progress Note, Physician Chief Complaint: Pt lying in bed, pt is on ampicillin and meropenam Rpt bilirubin coming down 1.9 WBC coming down 5.8 blood cul negative,urine cul shows proteus mirabilis - Current Medication List Current Medications: Active Medications Acetaminophen (Tylenol -) 650 mg PO Q6H PRN PRN Reason: FEVER Last Admin: 03/17/16 17:52 Dose: 650 mg Amlodipine Besylate (Norvasc -) 10 mg PO DAILY [facility] Last Admin: 03/19/16 09:05 Dose: 10 mg Aspirin (Asa -) 81 mg PO DAILY [facility] Last Admin: 03/19/16 09:04 Dose: 81 mg Atorvastatin Calcium (Lipitor -) 40 mg PO HS [facility] Last Admin: 03/18/16 21:04 Dose: 40 mg Meropenem 1 gm/ Dextrose 100 mls @ 250 mls/hr IVPB Q8H-IV [facility] Last Admin: 03/19/16 01:28 Dose: 200 mls/hr Ampicillin Sodium 1 gm/ Sodium (Chloride) 100 mls @ 200 mls/hr IVPB Q8H-IV [facility] Last Admin: 03/19/16 09:05 Dose: 200 mls/hr Losartan Potassium (Cozaar -) 100 mg PO DAILY [facility] Last Admin: 03/19/16 09:05 Dose: 100 mg Metformin HCl (Glucophage -) 1,000 mg PO AM [facility] Last Admin: 03/19/16 06:17 Dose: 1,000 mg Metoprolol Succinate (Toprol Xl -) 100 mg PO DAILY [facility] Last Admin: 03/19/16 09:05 Dose: 100 mg Tamsulosin HCl (Flomax -) 0.4 mg PO DAILY@0830 [facility] Last Admin: 03/19/16 08:11 Dose: 0.4 mg Ticagrelor (Brilinta -) 90 mg PO BID [facility] Last Admin: 03/19/16 09:04 Dose: 90 mg - Objective Vital Signs: Vital Signs Temperature 98.5 F 03/19/16 06:00 Pulse Rate 63 03/19/16 06:00 Respiratory Rate 20 03/19/16 06:00 Blood Pressure 147/88 03/19/16 06:00 O2 Sat by Pulse Oximetry (%) 98 03/18/16 21:00 Constitutional: Yes: No Distress Eyes: Yes: Conjunctiva Clear HENT: Yes: Atraumatic Neck: Yes: Supple, Trachea Midline Cardiovascular: Yes: Regular Rate and Rhythm Respiratory: Yes: Regular, CTA Bilaterally Gastrointestinal: Yes: Normal Bowel Sounds, Soft Musculoskeletal: Yes: WNL Extremities: Yes: WNL Edema: No Peripheral Pulses WNL: Yes Neurological: Yes: WNL, Alert Psychiatric: Yes: Alert Labs: CBC, BMP 03/19/16 07:00 03/19/16 07:00 INR, PTT INR 1.16 (0.82-1.09) H 03/14/16 23:30 Assessment/Plan ,Leukocytosis improving,afebrile sepsis,r/o prostitis UTI,urine cul growing proteus mirabilis and grp D strep blood culture negative CAD,H/O PR,S/P stent Elevated bilirubin Hypertension,Hyperlipidemia DM PLAN Continue antibiotics Continue home MEDS will monitor fever
[2016-03-19] MEDS ORDERED: POTASSIUM CHLORIDE TABS 20 MEQ TABLET.ER (FP) PO ONE (10:15)
[2016-03-19 11:17] LABS: METAMYELOCYTE 1 % (0-2)
--- NOTE | 2016-03-19 12:59 | PN ---
Progress Note, Physician History of Present Illness: patient doing well still running temp in 99 - Current Medication List Current Medications: Active Medications Acetaminophen (Tylenol -) 650 mg PO Q6H PRN PRN Reason: FEVER Last Admin: 03/17/16 17:52 Dose: 650 mg Amlodipine Besylate (Norvasc -) 10 mg PO DAILY [facility] Last Admin: 03/19/16 09:05 Dose: 10 mg Aspirin (Asa -) 81 mg PO DAILY [facility] Last Admin: 03/19/16 09:04 Dose: 81 mg Atorvastatin Calcium (Lipitor -) 40 mg PO HS [facility] Last Admin: 03/18/16 21:04 Dose: 40 mg Meropenem 1 gm/ Dextrose 100 mls @ 250 mls/hr IVPB Q8H-IV [facility] Last Admin: 03/19/16 09:47 Dose: 250 mls/hr Ampicillin Sodium 1 gm/ Sodium (Chloride) 100 mls @ 200 mls/hr IVPB Q8H-IV [facility] Last Admin: 03/19/16 09:05 Dose: 200 mls/hr Losartan Potassium (Cozaar -) 100 mg PO DAILY [facility] Last Admin: 03/19/16 09:05 Dose: 100 mg Metformin HCl (Glucophage -) 1,000 mg PO AM [facility] Last Admin: 03/19/16 06:17 Dose: 1,000 mg Metoprolol Succinate (Toprol Xl -) 100 mg PO DAILY [facility] Last Admin: 03/19/16 09:05 Dose: 100 mg Tamsulosin HCl (Flomax -) 0.4 mg PO DAILY@0830 [facility] Last Admin: 03/19/16 08:11 Dose: 0.4 mg Ticagrelor (Brilinta -) 90 mg PO BID [facility] Last Admin: 03/19/16 09:04 Dose: 90 mg - Objective Vital Signs: Vital Signs Temperature 98.5 F 03/19/16 06:00 Pulse Rate 63 03/19/16 06:00 Respiratory Rate 20 03/19/16 06:00 Blood Pressure 147/88 03/19/16 06:00 O2 Sat by Pulse Oximetry (%) 98 03/18/16 21:00 Constitutional: Yes: No Distress, Calm HENT: Yes: Atraumatic, Normocephalic Neck: Yes: Supple, Trachea Midline Cardiovascular: Yes: Regular Rate and Rhythm Respiratory: Yes: Regular, CTA Bilaterally Gastrointestinal: Yes: Normal Bowel Sounds, Soft Musculoskeletal: Yes: WNL Extremities: Yes: WNL Neurological: Yes: Alert, Oriented Psychiatric: Yes: Alert Labs: CBC, BMP 03/19/16 07:00 03/19/16 07:00 INR, PTT INR 1.16 (0.82-1.09) H 03/14/16 23:30 Assessment/Plan Problem List - Problems (1) Fever in adult Code(s): R50.9 - FEVER, UNSPECIFIED (2) Hypokalemia Code(s): E87.6 - HYPOKALEMIA (3) UTI (urinary tract infection) Code(s): N39.0 - URINARY TRACT INFECTION, SITE NOT SPECIFIED (4) Coronary artery disease Code(s): I25.10 - ATHSCL HEART DISEASE OF [place] CORONARY ARTERY W/O ANG PCTRS Qualifiers: Coronary Disease-Associated Artery/Lesion type: [place] artery [place] vs. 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 Code(s): I11.9 - HYPERTENSIVE HEART DISEASE WITHOUT HEART FAILURE (8) Hyperlipidemia associated with type 2 diabetes mellitus Code(s): E11.69 - TYPE 2 DIABETES MELLITUS WITH OTHER SPECIFIED COMPLICATION E78.5 - HYPERLIPIDEMIA, UNSPECIFIED (9) Diabetes mellitus Code(s): E11.9 - TYPE 2 DIABETES MELLITUS WITHOUT COMPLICATIONS Qualifiers: Diabetes mellitus type: type 2 Diabetes mellitus complication detail: with microalbuminuria Diabetes mellitus [facility] insulin use: without [facility] use (10) Leukocytosis Code(s): D72.829 - ELEVATED WHITE BLOOD CELL COUNT, UNSPECIFIED Qualifiers: Leukocytosis type: unspecified Qualified Code(s): D72.829 - Elevated white blood cell count, unspecified (11) Demand ischemia Code(s): I24.8 - OTHER FORMS OF ACUTE ISCHEMIC HEART DISEASE 12 r/o prostatitis 13 sepsis 14 leukocytosis with aptient having fevers and his chronic bph i am worried patient might having prostatitis i am also going to get u/s of the kidneys plan continue abx continue current mgmt patients abx can be stopped after the 15th monitor temp
--- NOTE | 2016-03-19 14:52 | PN ---
Progress Note, Physician History of Present Illness: Low grade fever overnight. Dysuria and suprapubic pain without flank pain resolved on abx course. - Current Medication List Current Medications: Active Medications Acetaminophen (Tylenol -) 650 mg PO Q6H PRN PRN Reason: FEVER Last Admin: 03/17/16 17:52 Dose: 650 mg Amlodipine Besylate (Norvasc -) 10 mg PO DAILY [facility] Last Admin: 03/19/16 09:05 Dose: 10 mg Aspirin (Asa -) 81 mg PO DAILY [facility] Last Admin: 03/19/16 09:04 Dose: 81 mg Atorvastatin Calcium (Lipitor -) 40 mg PO HS [facility] Last Admin: 03/18/16 21:04 Dose: 40 mg Meropenem 1 gm/ Dextrose 100 mls @ 250 mls/hr IVPB Q8H-IV [facility] Last Admin: 03/19/16 09:47 Dose: 250 mls/hr Ampicillin Sodium 1 gm/ Sodium (Chloride) 100 mls @ 200 mls/hr IVPB Q8H-IV [facility] Last Admin: 03/19/16 09:05 Dose: 200 mls/hr Losartan Potassium (Cozaar -) 100 mg PO DAILY [facility] Last Admin: 03/19/16 09:05 Dose: 100 mg Metformin HCl (Glucophage -) 1,000 mg PO AM [facility] Last Admin: 03/19/16 06:17 Dose: 1,000 mg Metoprolol Succinate (Toprol Xl -) 100 mg PO DAILY [facility] Last Admin: 03/19/16 09:05 Dose: 100 mg Tamsulosin HCl (Flomax -) 0.4 mg PO DAILY@0830 [facility] Last Admin: 03/19/16 08:11 Dose: 0.4 mg Ticagrelor (Brilinta -) 90 mg PO BID [facility] Last Admin: 03/19/16 09:04 Dose: 90 mg - Objective Vital Signs: Vital Signs Temperature 98.2 F 03/19/16 09:00 Pulse Rate 71 03/19/16 09:00 Respiratory Rate 18 03/19/16 09:00 Blood Pressure 153/70 03/19/16 09:00 O2 Sat by Pulse Oximetry (%) 98 03/18/16 21:00 Constitutional: Yes: No Distress, Calm Neck: Yes: Supple Cardiovascular: Yes: Regular Rate and Rhythm Respiratory: Yes: Regular, CTA Bilaterally Gastrointestinal: Yes: Normal Bowel Sounds, Soft Edema: No Labs: CBC, BMP 03/19/16 07:00 03/19/16 07:00 INR, PTT INR 1.16 (0.82-1.09) H 03/14/16 23:30 Problem List - Problems (1) Fever in adult Code(s): R50.9 - FEVER, UNSPECIFIED (2) UTI (urinary tract infection) Code(s): N39.0 - URINARY TRACT INFECTION, SITE NOT SPECIFIED (3) Coronary artery disease Code(s): I25.10 - ATHSCL HEART DISEASE OF [place] CORONARY ARTERY W/O ANG PCTRS Qualifiers: Coronary Disease-Associated Artery/Lesion type: [place] artery [place] vs. 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 Code(s): I11.9 - HYPERTENSIVE HEART DISEASE WITHOUT HEART FAILURE (7) Hyperlipidemia associated with type 2 diabetes mellitus Code(s): E11.69 - TYPE 2 DIABETES MELLITUS WITH OTHER SPECIFIED COMPLICATION E78.5 - HYPERLIPIDEMIA, UNSPECIFIED (8) Diabetes mellitus Code(s): E11.9 - TYPE 2 DIABETES MELLITUS WITHOUT COMPLICATIONS Qualifiers: Diabetes mellitus type: type 2 Diabetes mellitus complication detail: with microalbuminuria Diabetes mellitus care home insulin use: without care home use (9) Demand ischemia Code(s): I24.8 - OTHER FORMS OF ACUTE ISCHEMIC HEART DISEASE Assessment/Plan 09/30/2015 cLVH with normal LV fxn without sig valve abnl 1. Leukocytosis, UTI and underlying BPH 2. CAD h/o [place], PCI (stent) - demand ischemia 3. PAF now in sinus rhythm 4. CKD with hypokalemia 5. Type 2 DM 6. Hyperlipidemia 7. Palpitations h/o PVC 8. Diastolic dysfunction with h/o failure PLAN: 1. Antibiotic coverage per ID, narrow spectrum per C&S. 2. Continue ASA 81 mg QD, Brilinta 90 mg BID, Lipitor 40 mg QD, Toprol XL 100 mg QD, Norvasc 10 mg QD, and Losartan 100 mg QD 3. Monitor electrolytes and replete as needed. K supplement
[2016-03-19] MEDS ORDERED: INSULIN (NOVOLOG) ASPART 100 UNITS/ML 10ML VIAL ONE (21:36)
[2016-03-19] MEDS: ATORVASTATIN CA 40 MG TABLET (FP) PO SCH (22:01)
[2016-03-20] MEDS ORDERED: PT OWN MED DRAWER 7, Y5N ONE ×3 (01:50→21:15)
[2016-03-20] MEDS: AMPICILLIN - 1 GM in SODIUM CHLORIDE 100 ML IVPB SCH ×3 (02:05→17:20)
[2016-03-20] MEDS: MEROPENEM 1 GM in DEXTROSE 5%-WATER - 100 ML IVPB SCH ×3 (02:05→17:56)
[2016-03-20] MEDS: metFORMIN HCL 500 MG TABLET (FP) PO SCH (06:13)
--- NOTE | 2016-03-20 09:05 | PN ---
Progress Note, Physician Chief Complaint: Pt lying in bed, pt is on ampicillin and meropenam Rpt bilirubin coming down 1.9 WBC coming down 5.8 blood cul negative,urine cul shows proteus mirabilis - Current Medication List Current Medications: Active Medications Acetaminophen (Tylenol -) 650 mg PO Q6H PRN PRN Reason: FEVER Last Admin: 03/17/16 17:52 Dose: 650 mg Amlodipine Besylate (Norvasc -) 10 mg PO DAILY [facility] Last Admin: 03/19/16 09:05 Dose: 10 mg Aspirin (Asa -) 81 mg PO DAILY [facility] Last Admin: 03/19/16 09:04 Dose: 81 mg Atorvastatin Calcium (Lipitor -) 40 mg PO HS [facility] Last Admin: 03/19/16 22:01 Dose: 40 mg Meropenem 1 gm/ Dextrose 100 mls @ 250 mls/hr IVPB Q8H-IV [facility] Last Admin: 03/20/16 02:05 Dose: 250 mls/hr Ampicillin Sodium 1 gm/ Sodium (Chloride) 100 mls @ 200 mls/hr IVPB Q8H-IV [facility] Last Admin: 03/20/16 02:05 Dose: 200 mls/hr Losartan Potassium (Cozaar -) 100 mg PO DAILY [facility] Last Admin: 03/19/16 09:05 Dose: 100 mg Metformin HCl (Glucophage -) 1,000 mg PO AM [facility] Last Admin: 03/20/16 06:13 Dose: 1,000 mg Metoprolol Succinate (Toprol Xl -) 100 mg PO DAILY [facility] Last Admin: 03/19/16 09:05 Dose: 100 mg Tamsulosin HCl (Flomax -) 0.4 mg PO DAILY@0830 [facility] Last Admin: 03/19/16 08:11 Dose: 0.4 mg Ticagrelor (Brilinta -) 90 mg PO BID [facility] Last Admin: 03/19/16 22:01 Dose: 90 mg - Objective Vital Signs: Vital Signs Temperature 98.3 F 03/20/16 06:35 Pulse Rate 62 03/20/16 06:35 Respiratory Rate 20 03/20/16 06:35 Blood Pressure 154/83 03/20/16 06:35 O2 Sat by Pulse Oximetry (%) 99 03/19/16 21:00 Constitutional: Yes: No Distress Eyes: Yes: Conjunctiva Clear HENT: Yes: Atraumatic, Normocephalic Neck: Yes: Supple, Trachea Midline Cardiovascular: Yes: Regular Rate and Rhythm Respiratory: Yes: Regular, CTA Bilaterally Gastrointestinal: Yes: Normal Bowel Sounds, Soft Musculoskeletal: Yes: WNL Extremities: Yes: WNL Peripheral Pulses WNL: No ...Motor Strength: WNL Psychiatric: Yes: Alert, Oriented Labs: CBC, BMP 03/19/16 07:00 03/19/16 07:00 INR, PTT INR 1.16 (0.82-1.09) H 03/14/16 23:30 Assessment/Plan ,Leukocytosis improving,afebrile sepsis,r/o prostitis UTI,urine cul growing proteus mirabilis and grp D strep blood culture negative CAD,H/O [place],S/P stent Elevated bilirubin Hypertension,Hyperlipidemia DM PLAN Continue antibiotics Continue home MEDS will monitor fever
[2016-03-20] MEDS: amLODIPine BESYLATE 10 MG TABLET (FP) PO SCH (10:04)
[2016-03-20] MEDS: METOPROLOL SUCCINATE 100 MG TAB.SR.24H (FP) PO SCH (10:04)
[2016-03-20] MEDS: ASPIRIN 81 MG CHEWABLE TABLETS PO SCH (10:04)
[2016-03-20] MEDS: LOSARTAN POTASSIUM 50 MG TABLET (FP) PO SCH (10:04)
[2016-03-20] MEDS: TAMSULOSIN HCL 0.4 MG CAP.ER.24H (FP) PO SCH (10:04)
[2016-03-20] MEDS: TICAGRELOR 90 MG TABLET PO SCH ×2 (10:05→21:59)
--- NOTE | 2016-03-20 14:24 | PN ---
Progress Note, Physician History of Present Illness: stable no events feels much better - Current Medication List Current Medications: Active Medications Acetaminophen (Tylenol -) 650 mg PO Q6H PRN PRN Reason: FEVER Last Admin: 03/17/16 17:52 Dose: 650 mg Amlodipine Besylate (Norvasc -) 10 mg PO DAILY [facility] Last Admin: 03/20/16 10:04 Dose: 10 mg Aspirin (Asa -) 81 mg PO DAILY [facility] Last Admin: 03/20/16 10:04 Dose: 81 mg Atorvastatin Calcium (Lipitor -) 40 mg PO HS [facility] Last Admin: 03/19/16 22:01 Dose: 40 mg Meropenem 1 gm/ Dextrose 100 mls @ 250 mls/hr IVPB Q8H-IV [facility] Last Admin: 03/20/16 09:05 Dose: 250 mls/hr Ampicillin Sodium 1 gm/ Sodium (Chloride) 100 mls @ 200 mls/hr IVPB Q8H-IV [facility] Last Admin: 03/20/16 10:05 Dose: 200 mls/hr Losartan Potassium (Cozaar -) 100 mg PO DAILY [facility] Last Admin: 03/20/16 10:04 Dose: 100 mg Metformin HCl (Glucophage -) 1,000 mg PO AM [facility] Last Admin: 03/20/16 06:13 Dose: 1,000 mg Metoprolol Succinate (Toprol Xl -) 100 mg PO DAILY [facility] Last Admin: 03/20/16 10:04 Dose: 100 mg Tamsulosin HCl (Flomax -) 0.4 mg PO DAILY@0830 [facility] Last Admin: 03/20/16 10:04 Dose: 0.4 mg Ticagrelor (Brilinta -) 90 mg PO BID [facility] Last Admin: 03/20/16 10:05 Dose: 90 mg - Objective Vital Signs: Vital Signs Temperature 98.4 F 03/20/16 09:00 Pulse Rate 66 03/20/16 09:00 Respiratory Rate 18 03/20/16 09:00 Blood Pressure 126/73 03/20/16 09:00 O2 Sat by Pulse Oximetry (%) 98 03/20/16 09:00 Constitutional: Yes: No Distress, Calm Cardiovascular: Yes: Regular Rate and Rhythm Respiratory: Yes: Regular, CTA Bilaterally Gastrointestinal: Yes: Normal Bowel Sounds, Soft Musculoskeletal: Yes: WNL Extremities: Yes: WNL Neurological: Yes: Alert, Oriented Psychiatric: Yes: Alert Labs: CBC, BMP 03/19/16 07:00 03/19/16 07:00 INR, PTT INR 1.16 (0.82-1.09) H 03/14/16 23:30 Assessment/Plan Problem List - Problems (1) Fever in adult Code(s): R50.9 - FEVER, UNSPECIFIED (2) Hypokalemia Code(s): E87.6 - HYPOKALEMIA (3) UTI (urinary tract infection) Code(s): N39.0 - URINARY TRACT INFECTION, SITE NOT SPECIFIED (4) Coronary artery disease Code(s): I25.10 - ATHSCL HEART DISEASE OF [place] CORONARY ARTERY W/O ANG PCTRS Qualifiers: Coronary Disease-Associated Artery/Lesion type: [place] artery [place] vs. 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 Code(s): I11.9 - HYPERTENSIVE HEART DISEASE WITHOUT HEART FAILURE (8) Hyperlipidemia associated with type 2 diabetes mellitus Code(s): E11.69 - TYPE 2 DIABETES MELLITUS WITH OTHER SPECIFIED COMPLICATION E78.5 - HYPERLIPIDEMIA, UNSPECIFIED (9) Diabetes mellitus Code(s): E11.9 - TYPE 2 DIABETES MELLITUS WITHOUT COMPLICATIONS Qualifiers: Diabetes mellitus type: type 2 Diabetes mellitus complication detail: with microalbuminuria 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
--- NOTE | 2016-03-20 15:36 | PN ---
Progress Note, Physician History of Present Illness: Remains afebrile. Dysuria and suprapubic pain without flank pain resolved on abx course. - Current Medication List Current Medications: Active Medications Acetaminophen (Tylenol -) 650 mg PO Q6H PRN PRN Reason: FEVER Last Admin: 03/17/16 17:52 Dose: 650 mg Amlodipine Besylate (Norvasc -) 10 mg PO DAILY [facility] Last Admin: 03/20/16 10:04 Dose: 10 mg Aspirin (Asa -) 81 mg PO DAILY [facility] Last Admin: 03/20/16 10:04 Dose: 81 mg Atorvastatin Calcium (Lipitor -) 40 mg PO HS [facility] Last Admin: 03/19/16 22:01 Dose: 40 mg Meropenem 1 gm/ Dextrose 100 mls @ 250 mls/hr IVPB Q8H-IV [facility] Last Admin: 03/20/16 09:05 Dose: 250 mls/hr Ampicillin Sodium 1 gm/ Sodium (Chloride) 100 mls @ 200 mls/hr IVPB Q8H-IV [facility] Last Admin: 03/20/16 10:05 Dose: 200 mls/hr Losartan Potassium (Cozaar -) 100 mg PO DAILY [facility] Last Admin: 03/20/16 10:04 Dose: 100 mg Metformin HCl (Glucophage -) 1,000 mg PO AM [facility] Last Admin: 03/20/16 06:13 Dose: 1,000 mg Metoprolol Succinate (Toprol Xl -) 100 mg PO DAILY [facility] Last Admin: 03/20/16 10:04 Dose: 100 mg Tamsulosin HCl (Flomax -) 0.4 mg PO DAILY@0830 [facility] Last Admin: 03/20/16 10:04 Dose: 0.4 mg Ticagrelor (Brilinta -) 90 mg PO BID [facility] Last Admin: 03/20/16 10:05 Dose: 90 mg - Objective Vital Signs: Vital Signs Temperature 98.4 F 03/20/16 09:00 Pulse Rate 66 03/20/16 09:00 Respiratory Rate 18 03/20/16 09:00 Blood Pressure 126/73 03/20/16 09:00 O2 Sat by Pulse Oximetry (%) 98 03/20/16 09:00 Constitutional: Yes: No Distress, Calm Neck: Yes: Supple Cardiovascular: Yes: Regular Rate and Rhythm Respiratory: Yes: Regular, CTA Bilaterally Gastrointestinal: Yes: Normal Bowel Sounds, Soft Edema: No Labs: CBC, BMP 03/19/16 07:00 03/19/16 07:00 INR, PTT INR 1.16 (0.82-1.09) H 03/14/16 23:30 Problem List - Problems (1) Fever in adult Code(s): R50.9 - FEVER, UNSPECIFIED (2) UTI (urinary tract infection) Code(s): N39.0 - URINARY TRACT INFECTION, SITE NOT SPECIFIED (3) Coronary artery disease Code(s): I25.10 - ATHSCL HEART DISEASE OF [place] CORONARY ARTERY W/O ANG PCTRS Qualifiers: Coronary Disease-Associated Artery/Lesion type: [place] artery [place] vs. 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 Code(s): I11.9 - HYPERTENSIVE HEART DISEASE WITHOUT HEART FAILURE (7) Hyperlipidemia associated with type 2 diabetes mellitus Code(s): E11.69 - TYPE 2 DIABETES MELLITUS WITH OTHER SPECIFIED COMPLICATION E78.5 - HYPERLIPIDEMIA, UNSPECIFIED (8) Diabetes mellitus Code(s): E11.9 - TYPE 2 DIABETES MELLITUS WITHOUT COMPLICATIONS Qualifiers: Diabetes mellitus type: type 2 Diabetes mellitus complication detail: with microalbuminuria 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 Leukocytosis, UTI and underlying BPH 2. CAD h/o [place], PCI (stent) - demand ischemia 3. PAF now in sinus rhythm 4. CKD with hypokalemia 5. Type 2 DM 6. Hyperlipidemia 7. Palpitations h/o PVC 8. Diastolic dysfunction with h/o failure PLAN: 1. Antibiotic coverage per [place], narrow spectrum per C&S. 2. Continue ASA 81 mg QD, Brilinta 90 mg BID, Lipitor 40 mg QD, Toprol XL 100 mg QD, Norvasc 10 mg QD, and Losartan 100 mg QD 3. Monitor electrolytes and replete as needed. K supplement
[2016-03-20] MEDS: ATORVASTATIN CA 40 MG TABLET (FP) PO SCH (21:59)
[2016-03-21] MEDS ORDERED: PT OWN MED DRAWER 7, Y5N ONE ×3 (02:37→21:45)
[2016-03-21] MEDS: MEROPENEM 1 GM in DEXTROSE 5%-WATER - 100 ML IVPB SCH ×3 (02:46→18:37)
[2016-03-21] MEDS: AMPICILLIN - 1 GM in SODIUM CHLORIDE 100 ML IVPB SCH ×3 (02:46→17:38)
[2016-03-21] MEDS: metFORMIN HCL 500 MG TABLET (FP) PO SCH (06:21)
--- NOTE | 2016-03-21 09:42 | PN ---
Progress Note, Physician Chief Complaint: Pt lying in bed,afebrile,urinary symptoms improved pt is on ampicillin and meropenam Rpt bilirubin coming down 1.9 WBC coming down 5.8 blood cul negative,urine cul shows proteus mirabilis - Current Medication List Current Medications: Active Medications Acetaminophen (Tylenol -) 650 mg PO Q6H PRN PRN Reason: FEVER Last Admin: 03/17/16 17:52 Dose: 650 mg Amlodipine Besylate (Norvasc -) 10 mg PO DAILY [facility] Last Admin: 03/20/16 10:04 Dose: 10 mg Aspirin (Asa -) 81 mg PO DAILY [facility] Last Admin: 03/20/16 10:04 Dose: 81 mg Atorvastatin Calcium (Lipitor -) 40 mg PO HS [facility] Last Admin: 03/20/16 21:59 Dose: 40 mg Meropenem 1 gm/ Dextrose 100 mls @ 250 mls/hr IVPB Q8H-IV [facility] Last Admin: 03/21/16 02:46 Dose: 250 mls/hr Ampicillin Sodium 1 gm/ Sodium (Chloride) 100 mls @ 200 mls/hr IVPB Q8H-IV [facility] Last Admin: 03/21/16 02:46 Dose: 200 mls/hr Losartan Potassium (Cozaar -) 100 mg PO DAILY [facility] Last Admin: 03/20/16 10:04 Dose: 100 mg Metformin HCl (Glucophage -) 1,000 mg PO AM [facility] Last Admin: 03/21/16 06:21 Dose: 1,000 mg Metoprolol Succinate (Toprol Xl -) 100 mg PO DAILY [facility] Last Admin: 03/20/16 10:04 Dose: 100 mg Tamsulosin HCl (Flomax -) 0.4 mg PO DAILY@0830 [facility] Last Admin: 03/20/16 10:04 Dose: 0.4 mg Ticagrelor (Brilinta -) 90 mg PO BID [facility] Last Admin: 03/20/16 21:59 Dose: 90 mg - Objective Vital Signs: Vital Signs Temperature 98 F 03/21/16 06:48 Pulse Rate 57 L 03/21/16 06:48 Respiratory Rate 20 03/21/16 06:48 Blood Pressure 157/80 03/21/16 06:48 O2 Sat by Pulse Oximetry (%) 98 03/20/16 21:00 Constitutional: Yes: No Distress Eyes: Yes: Conjunctiva Clear HENT: Yes: Atraumatic Neck: Yes: Supple Cardiovascular: Yes: Regular Rate and Rhythm Respiratory: Yes: Regular, CTA Bilaterally Gastrointestinal: Yes: Normal Bowel Sounds Musculoskeletal: Yes: WNL Extremities: Yes: WNL Edema: No Peripheral Pulses WNL: Yes Neurological: Yes: WNL, Alert ...Motor Strength: WNL Psychiatric: Yes: WNL Labs: CBC, BMP 03/19/16 07:00 03/19/16 07:00 INR, PTT INR 1.16 (0.82-1.09) H 03/14/16 23:30 Assessment/Plan ,Leukocytosis improved,afebrile sepsis,r/o prostitis UTI,urine cul growing proteus mirabilis and grp D strep blood culture negative CAD,H/O [place],S/P stent Elevated bilirubin Hypertension,Hyperlipidemia DM PLAN Continue antibiotics Continue home MEDS will monitor fever will f/u ID rec regarding D/C plan
[2016-03-21] MEDS: METOPROLOL SUCCINATE 100 MG TAB.SR.24H (FP) PO SCH (10:18)
[2016-03-21] MEDS: amLODIPine BESYLATE 10 MG TABLET (FP) PO SCH (10:18)
[2016-03-21] MEDS: TAMSULOSIN HCL 0.4 MG CAP.ER.24H (FP) PO SCH (10:18)
[2016-03-21] MEDS: ASPIRIN 81 MG CHEWABLE TABLETS PO SCH (10:18)
[2016-03-21] MEDS: LOSARTAN POTASSIUM 50 MG TABLET (FP) PO SCH (10:18)
[2016-03-21] MEDS: TICAGRELOR 90 MG TABLET PO SCH ×2 (10:19→22:22)
--- NOTE | 2016-03-21 15:43 | PN ---
Progress Note, Physician History of Present Illness: stable no new issues - Current Medication List Current Medications: Active Medications Acetaminophen (Tylenol -) 650 mg PO Q6H PRN PRN Reason: FEVER Last Admin: 03/17/16 17:52 Dose: 650 mg Amlodipine Besylate (Norvasc -) 10 mg PO DAILY [facility] Last Admin: 03/21/16 10:18 Dose: 10 mg Aspirin (Asa -) 81 mg PO DAILY [facility] Last Admin: 03/21/16 10:18 Dose: 81 mg Atorvastatin Calcium (Lipitor -) 40 mg PO HS [facility] Last Admin: 03/20/16 21:59 Dose: 40 mg Meropenem 1 gm/ Dextrose 100 mls @ 250 mls/hr IVPB Q8H-IV [facility] Last Admin: 03/21/16 10:19 Dose: 250 mls/hr Ampicillin Sodium 1 gm/ Sodium (Chloride) 100 mls @ 200 mls/hr IVPB Q8H-IV [facility] Last Admin: 03/21/16 10:16 Dose: 200 mls/hr Losartan Potassium (Cozaar -) 100 mg PO DAILY [facility] Last Admin: 03/21/16 10:18 Dose: 100 mg Metformin HCl (Glucophage -) 1,000 mg PO AM [facility] Last Admin: 03/21/16 06:21 Dose: 1,000 mg Metoprolol Succinate (Toprol Xl -) 100 mg PO DAILY [facility] Last Admin: 03/21/16 10:18 Dose: 100 mg Tamsulosin HCl (Flomax -) 0.4 mg PO DAILY@0830 [facility] Last Admin: 03/21/16 10:18 Dose: 0.4 mg Ticagrelor (Brilinta -) 90 mg PO BID [facility] Last Admin: 03/21/16 10:19 Dose: 90 mg - Objective Vital Signs: Vital Signs Temperature 98.4 F 03/21/16 10:00 Pulse Rate 68 03/21/16 15:40 Respiratory Rate 18 03/21/16 10:00 Blood Pressure 158/93 03/21/16 15:40 O2 Sat by Pulse Oximetry (%) 98 03/21/16 09:00 Constitutional: Yes: No Distress, Calm Neck: Yes: Supple Cardiovascular: Yes: Regular Rate and Rhythm Respiratory: Yes: Regular, CTA Bilaterally Gastrointestinal: Yes: Normal Bowel Sounds, Soft Musculoskeletal: Yes: WNL Extremities: Yes: WNL Integumentary: Yes: WNL Neurological: Yes: Alert, Oriented Psychiatric: Yes: Alert, Oriented Labs: CBC, BMP 03/19/16 07:00 03/19/16 07:00 INR, PTT INR 1.16 (0.82-1.09) H 03/14/16 23:30 Assessment/Plan Problem List - Problems (1) Fever in adult Code(s): R50.9 - FEVER, UNSPECIFIED (2) Hypokalemia Code(s): E87.6 - HYPOKALEMIA (3) UTI (urinary tract infection) Code(s): N39.0 - URINARY TRACT INFECTION, SITE NOT SPECIFIED (4) Coronary artery disease Code(s): I25.10 - ATHSCL HEART DISEASE OF [place] CORONARY ARTERY W/O ANG PCTRS Qualifiers: Coronary Disease-Associated Artery/Lesion type: [place] artery [place] vs. 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 Code(s): I11.9 - HYPERTENSIVE HEART DISEASE WITHOUT HEART FAILURE (8) Hyperlipidemia associated with type 2 diabetes mellitus Code(s): E11.69 - TYPE 2 DIABETES MELLITUS WITH OTHER SPECIFIED COMPLICATION E78.5 - HYPERLIPIDEMIA, UNSPECIFIED (9) Diabetes mellitus Code(s): E11.9 - TYPE 2 DIABETES MELLITUS WITHOUT COMPLICATIONS Qualifiers: Diabetes mellitus type: type 2 Diabetes mellitus complication detail: with microalbuminuria Diabetes mellitus intermediate insulin use: without crude tester use (10) Leukocytosis Code(s): D72.829 - ELEVATED WHITE BLOOD CELL COUNT, UNSPECIFIED Qualifiers: Leukocytosis type: unspecified Qualified Code(s): D72.829 - Elevated white blood cell count, unspecified (11) Demand ischemia Code(s): I24.8 - OTHER FORMS OF ACUTE ISCHEMIC HEART DISEASE 12 r/o prostatitis 13 sepsis 14 leukocytosis with aptient having fevers and his chronic bph i am worried patient might having prostatitis i am also going to get u/s of the kidneys plan stop iv abx tomorrow morning patient can be dced on ampicilin 500mg q 8hrly for 7 days and levaquin 750mg daily for 7 days
--- NOTE | 2016-03-21 16:37 | PN ---
Progress Note, Physician History of Present Illness: Remains afebrile. Dysuria and suprapubic pain without flank pain resolved on abx course. - Current Medication List Current Medications: Active Medications Acetaminophen (Tylenol -) 650 mg PO Q6H PRN PRN Reason: FEVER Last Admin: 03/17/16 17:52 Dose: 650 mg Amlodipine Besylate (Norvasc -) 10 mg PO DAILY [facility]PL[facility] Last Admin: 03/21/16 10:18 Dose: 10 mg Aspirin (Asa -) 81 mg PO DAILY [facility] Last Admin: 03/21/16 10:18 Dose: 81 mg Atorvastatin Calcium (Lipitor -) 40 mg PO HS [facility] Last Admin: 03/20/16 21:59 Dose: 40 mg Meropenem 1 gm/ Dextrose 100 mls @ 250 mls/hr IVPB Q8H-IV [facility] Last Admin: 03/21/16 10:19 Dose: 250 mls/hr Ampicillin Sodium 1 gm/ Sodium (Chloride) 100 mls @ 200 mls/hr IVPB Q8H-IV [facility] Last Admin: 03/21/16 10:16 Dose: 200 mls/hr Losartan Potassium (Cozaar -) 100 mg PO DAILY [facility] Last Admin: 03/21/16 10:18 Dose: 100 mg Metformin HCl (Glucophage -) 1,000 mg PO AM [facility]PL[facility] BY [facility] Last Admin: 03/21/16 06:21 Dose: 1,000 mg Metoprolol Succinate (Toprol Xl -) 100 mg PO DAILY [facility] Last Admin: 03/21/16 10:18 Dose: 100 mg Tamsulosin HCl (Flomax -) 0.4 mg PO DAILY@0830 [facility] Last Admin: 03/21/16 10:18 Dose: 0.4 mg Ticagrelor (Brilinta -) 90 mg PO BID [facility]PL[facility] BY [facility] Last Admin: 03/21/16 10:19 Dose: 90 mg - Objective Vital Signs: Vital Signs Temperature 98.4 F 03/21/16 10:00 Pulse Rate 68 03/21/16 15:40 Respiratory Rate 18 03/21/16 10:00 Blood Pressure 158/93 03/21/16 15:40 O2 Sat by Pulse Oximetry (%) 98 03/21/16 09:00 Constitutional: Yes: No Distress, Calm Neck: Yes: Supple Cardiovascular: Yes: Regular Rate and Rhythm Respiratory: Yes: Regular, Diminished Gastrointestinal: Yes: Normal Bowel Sounds, Soft Edema: No Labs: CBC, BMP 03/19/16 07:00 03/19/16 07:00 INR, PTT INR 1.16 (0.82-1.09) H 03/14/16 23:30 Problem List - Problems (1) UTI (urinary tract infection) Code(s): N39.0 - URINARY TRACT INFECTION, SITE NOT SPECIFIED (2) Coronary artery disease Code(s): I25.10 - ATHSCL HEART DISEASE OF [place] CORONARY ARTERY W/O ANG PCTRS Qualifiers: Coronary Disease-Associated Artery/Lesion type: [place] artery [place] vs. 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 Code(s): I11.9 - HYPERTENSIVE HEART DISEASE WITHOUT HEART FAILURE (6) Hyperlipidemia associated with type 2 diabetes mellitus Code(s): E11.69 - TYPE 2 DIABETES MELLITUS WITH OTHER SPECIFIED COMPLICATION E78.5 - HYPERLIPIDEMIA, UNSPECIFIED (7) Diabetes mellitus Code(s): E11.9 - TYPE 2 DIABETES MELLITUS WITHOUT COMPLICATIONS Qualifiers: Diabetes mellitus type: type 2 Diabetes mellitus complication detail: with microalbuminuria Diabetes mellitus group home insulin use: without group home use (8) Demand ischemia Code(s): I24.8 - OTHER FORMS OF ACUTE ISCHEMIC HEART DISEASE Assessment/Plan 09/30/2015 cLVH with normal LV fxn without sig valve abnl 1. Leukocytosis, UTI and underlying BPH 2. CAD h/o RI, PCI (stent) - demand ischemia 3. PAF now in sinus rhythm 4. CKD with hypokalemia 5. Type 2 DM 6. Hyperlipidemia 7. Palpitations h/o PVC 8. Diastolic dysfunction with h/o failure PLAN: 1. Antibiotic coverage per ID, narrow spectrum per C&S. 2. Continue ASA 81 mg QD, Brilinta 90 bid, Lipitor 40 mg QD, Toprol XL 100 mg QD , Norvasc 10 mg QD, and Losartan 100 mg QD 3. Monitor electrolytes and replete as needed. K supplement
[2016-03-21] MEDS: ATORVASTATIN CA 40 MG TABLET (FP) PO SCH (22:22)
[2016-03-22] MEDS ORDERED: PT OWN MED DRAWER 7, Y5N ONE ×2 (02:48→08:07)
[2016-03-22] MEDS: AMPICILLIN - 1 GM in SODIUM CHLORIDE 100 ML IVPB SCH ×2 (03:16→09:55)
[2016-03-22] MEDS: MEROPENEM 1 GM in DEXTROSE 5%-WATER - 100 ML IVPB SCH ×2 (03:17→09:56)
[2016-03-22] MEDS: metFORMIN HCL 500 MG TABLET (FP) PO SCH (06:15)
[2016-03-22 07:10] LABS: BASOPHIL 0.5 % (0-2.0); MCH 27.3 pg (25.7-33.7); MCHC 34.3 g/dl (32.0-35.9); MEAN CELL VOLUME 79.7 fl (80-96); MEAN PLT VOLUME 7.8 fl (7.5-11.1); NEUTROPHILS 58.5 % (42.8-82.8); PLATELET COUNT 249 K/MM3 (134-434); RDW 14.3 % (11.9-15.9); WHITE BLOOD COUNT 9.8 K/mm3 (4.0-10.0)
[2016-03-22 07:36] LABS: ALK PHOS 76 U/L (45-117); ANION GAP 6 (8-16); BILIRUBIN,TOTAL 1.6 mg/dL (0.2-1.0); CALCIUM 8.4 mg/dL (8.5-10.1); CO2 32 mmol/L (21-32); CREATININE 0.9 mg/dL (0.7-1.3); GLUCOSE,RANDOM 131 mg/dL (74-106); SGOT/AST 21 U/L (15-37); SGPT/ALT 38 U/L (12-78)
--- NOTE | 2016-03-22 09:35 | PN ---
Progress Note, Physician Chief Complaint: Pt lying in bed,afebrile,urinary symptoms improved pt is on ampicillin and meropenam Rpt bilirubin coming down 1.9 WBC coming down 5.8 blood cul negative,urine cul shows proteus mirabilis d/c planning - Current Medication List Current Medications: Active Medications Acetaminophen (Tylenol -) 650 mg PO Q6H PRN PRN Reason: FEVER Last Admin: 03/17/16 17:52 Dose: 650 mg Amlodipine Besylate (Norvasc -) 10 mg PO DAILY [facility] Last Admin: 03/21/16 10:18 Dose: 10 mg Aspirin (Asa -) 81 mg PO DAILY [facility] Last Admin: 03/21/16 10:18 Dose: 81 mg Atorvastatin Calcium (Lipitor -) 40 mg PO HS [facility] Last Admin: 03/21/16 22:22 Dose: 40 mg Meropenem 1 gm/ Dextrose 100 mls @ 250 mls/hr IVPB Q8H-IV [facility] Last Admin: 03/22/16 03:17 Dose: 250 mls/hr Ampicillin Sodium 1 gm/ Sodium (Chloride) 100 mls @ 200 mls/hr IVPB Q8H-IV [facility] Last Admin: 03/22/16 03:16 Dose: 200 mls/hr Losartan Potassium (Cozaar -) 100 mg PO DAILY [facility] Last Admin: 03/21/16 10:18 Dose: 100 mg Metformin HCl (Glucophage -) 1,000 mg PO AM [facility] Last Admin: 03/22/16 06:15 Dose: 1,000 mg Metoprolol Succinate (Toprol Xl -) 100 mg PO DAILY [facility] Last Admin: 03/21/16 10:18 Dose: 100 mg Tamsulosin HCl (Flomax -) 0.4 mg PO DAILY@0830 [facility] Last Admin: 03/21/16 10:18 Dose: 0.4 mg Ticagrelor (Brilinta -) 90 mg PO BID [facility] Last Admin: 03/21/16 22:22 Dose: 90 mg - Objective Vital Signs: Vital Signs Temperature 98.3 F 03/22/16 06:00 Pulse Rate 61 03/22/16 06:00 Respiratory Rate 18 03/22/16 06:00 Blood Pressure 151/77 03/22/16 06:00 O2 Sat by Pulse Oximetry (%) 98 03/21/16 21:00 Constitutional: Yes: No Distress Eyes: Yes: Conjunctiva Clear HENT: Yes: Atraumatic, Normocephalic Neck: Yes: Supple, Trachea Midline Cardiovascular: Yes: Regular Rate and Rhythm Respiratory: Yes: Regular, CTA Bilaterally Gastrointestinal: Yes: Normal Bowel Sounds, Soft Musculoskeletal: Yes: WNL Extremities: Yes: WNL Edema: No Peripheral Pulses WNL: Yes Neurological: Yes: WNL, Alert, Oriented Labs: CBC, BMP 03/22/16 06:05 03/22/16 06:05 INR, PTT INR 1.16 (0.82-1.09) H 03/14/16 23:30 Assessment/Plan , Pt lying in bed ,afebrile,no urinary symptoms sepsis,r/o prostitis UTI,urine cul growing proteus mirabilis and grp D strep blood culture negative CAD,H/O ND,S/P stent Hypertension,Hyperlipidemia DM PLAN D/c iv antibiotics Continue home MEDS will monitor fever will d/c home on PO levaquin 750 mg daily and amoxicillin 500mg po tid for 7days
[2016-03-22] MEDS: TAMSULOSIN HCL 0.4 MG CAP.ER.24H (FP) PO SCH (09:55)
[2016-03-22] MEDS: ASPIRIN 81 MG CHEWABLE TABLETS PO SCH (09:55)
[2016-03-22] MEDS: LOSARTAN POTASSIUM 50 MG TABLET (FP) PO SCH (09:55)
[2016-03-22] MEDS: METOPROLOL SUCCINATE 100 MG TAB.SR.24H (FP) PO SCH (09:55)
[2016-03-22] MEDS: amLODIPine BESYLATE 10 MG TABLET (FP) PO SCH (09:55)
[2016-03-22] MEDS: TICAGRELOR 90 MG TABLET PO SCH (09:58)
[2016-03-22 11:05] VITALS: BP 138/82; PULSE 74; TEMP 98.2
--- NOTE | 2016-03-22 13:02 | PN ---
Progress Note, Physician History of Present Illness: stable no new issues - Current Medication List Current Medications: Active Medications Acetaminophen (Tylenol -) 650 mg PO Q6H PRN PRN Reason: FEVER Last Admin: 03/17/16 17:52 Dose: 650 mg Amlodipine Besylate (Norvasc -) 10 mg PO DAILY [facility] Last Admin: 03/22/16 09:55 Dose: 10 mg Aspirin (Asa -) 81 mg PO DAILY [facility] Last Admin: 03/22/16 09:55 Dose: 81 mg Atorvastatin Calcium (Lipitor -) 40 mg PO HS [facility] Last Admin: 03/21/16 22:22 Dose: 40 mg Losartan Potassium (Cozaar -) 100 mg PO DAILY [facility] Last Admin: 03/22/16 09:55 Dose: 100 mg Metformin HCl (Glucophage -) 1,000 mg PO AM [facility] Last Admin: 03/22/16 06:15 Dose: 1,000 mg Metoprolol Succinate (Toprol Xl -) 100 mg PO DAILY [facility] Last Admin: 03/22/16 09:55 Dose: 100 mg Tamsulosin HCl (Flomax -) 0.4 mg PO DAILY@0830 [facility] Last Admin: 03/22/16 09:55 Dose: 0.4 mg Ticagrelor (Brilinta -) 90 mg PO BID [facility] Last Admin: 03/22/16 09:58 Dose: 90 mg - Objective Vital Signs: Vital Signs Temperature 98.2 F 03/22/16 10:00 Pulse Rate 74 03/22/16 10:00 Respiratory Rate 18 03/22/16 10:00 Blood Pressure 138/82 03/22/16 10:00 O2 Sat by Pulse Oximetry (%) 98 03/22/16 09:00 Constitutional: Yes: No Distress, Calm HENT: Yes: Atraumatic Neck: Yes: Supple Cardiovascular: Yes: Regular Rate and Rhythm Respiratory: Yes: Regular, CTA Bilaterally Gastrointestinal: Yes: Normal Bowel Sounds, Soft Musculoskeletal: Yes: WNL Extremities: Yes: WNL Neurological: Yes: Alert, Oriented Psychiatric: Yes: Alert Labs: CBC, BMP 03/22/16 06:05 03/22/16 06:05 INR, PTT INR 1.16 (0.82-1.09) H 03/14/16 23:30 Assessment/Plan Problem List - Problems (1) Fever in adult Code(s): R50.9 - FEVER, UNSPECIFIED (2) Hypokalemia Code(s): E87.6 - HYPOKALEMIA (3) UTI (urinary tract infection) Code(s): N39.0 - URINARY TRACT INFECTION, SITE NOT SPECIFIED (4) Coronary artery disease Code(s): I25.10 - ATHSCL HEART DISEASE OF [place] CORONARY ARTERY W/O ANG PCTRS Qualifiers: Coronary Disease-Associated Artery/Lesion type: [place] artery [place] vs. 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 Code(s): I11.9 - HYPERTENSIVE HEART DISEASE WITHOUT HEART FAILURE (8) Hyperlipidemia associated with type 2 diabetes mellitus Code(s): E11.69 - TYPE 2 DIABETES MELLITUS WITH OTHER SPECIFIED COMPLICATION E78.5 - HYPERLIPIDEMIA, UNSPECIFIED (9) Diabetes mellitus Code(s): E11.9 - TYPE 2 DIABETES MELLITUS WITHOUT COMPLICATIONS Qualifiers: Diabetes mellitus type: type 2 Diabetes mellitus complication detail: with microalbuminuria 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
--- NOTE | 2016-03-22 22:39 | DS ---
Physical Examination Vital Signs: Vital Signs Temperature 98.2 F 03/22/16 10:00 Pulse Rate 74 03/22/16 10:00 Respiratory Rate 18 03/22/16 10:00 Blood Pressure 138/82 03/22/16 10:00 O2 Sat by Pulse Oximetry (%) 98 03/22/16 09:00 Labs: CBC, BMP 03/22/16 06:05 03/22/16 06:05 Discharge Summary Reason For Visit: FEVER, UTI, HYPOKALEMIA UTI Sepsis Hypokalemia Fever HTN,DM CAD,s/p [place] GERD Hospital Course: Pt with h/oHTN,Hypercholestrolemia,Dm,cad,H/o [place],GERD and BPH admitted with fever,chills and bodyache and UTI. Temp shows 101.4 Cbc shows wbc 15.9,K was2.8, bilirubin 2.5.Influenza type A and B antigen negative. x ray chest negative,urine positive for leukocytes and leukocyte esterase..pt was followed by ID,Gi and cardiology blood cul negative.urine cul shows proteus mirabilis,grp D strep Pt got treatment for sepsis with Meropenam and ampicillin.and home meds restarted Gi consult done for Elevated bilirubin.U/s of abdomen shows Cholelithiasis and renal sonogaram NL.As per GI elevated Bilirubin is due to [place]ts Disease urology consult done and rec to f/u as an OP Pt was stable on the floor.At the time of discharge,bili was 1.9 and wbc was NL pt discharged home on PO levaquin 750mg po daily for & days and cap amoxiciilin 500mg tid for 7 days Condition: Stable - Instructions Referrals: Dariana Huddleston MD [Primary Care Provider] - Disposition: HOME - Home Medications Comprehensive Discharge Medication List: Ambulatory Orders Metformin HCl [Glucophage] 1 tab PO DAILY 07/04/13 Metoprolol Succinate [Toprol XL -] 1 tab PO DAILY 07/04/13 Tamsulosin HCl 0.4 mg PO DAILY 06/15/14 Amlodipine Besylate [Norvasc -] 10 mg PO DAILY 06/16/14 Atorvastatin Ca [Lipitor] 40 mg PO HS 06/16/14 Losartan Potassium [Cozaar] 100 mg PO DAILY 06/16/14 Acetaminophen [Tylenol] 2 tab PO QID PRN 03/14/16 Aspirin [ASA -] 81 mg PO DAILY 03/14/16 Ticagrelor [Brilinta -] 90 mg PO BID 03/14/16 Amoxicillin - [Amoxicillin 500mg Capsule -] 500 mg PO TID #21 capsule 03/22/16 Levofloxacin [Levaquin] 750 mg PO DAILY #7 tab 03/22/16
== END 2016-03-22 13:36 | disposition home or self-care (01) | DRG 872 ==
LOC: JER 23:08 → JERBED 03-15 03:30 → UNDOADMIN 03-15 03:30 → JERBED 03-15 15:06 → J8W 03-15 15:06 → JERBED 03-15 20:36
PROVIDERS: ADMIT Family Medicine; ATTEND Family Medicine
DX: A41.9 Sepsis, unspecified organism (principal); I24.8 Other forms of acute ischemic heart disease; N39.0 Urinary tract infection, site not specified; E11.9 Type 2 diabetes mellitus without complications; E78.5 Hyperlipidemia, unspecified; I25.2 Old myocardial infarction; K21.9 Gastro-esophageal reflux disease without esophagitis; N40.0 Benign prostatic hyperplasia without lower urinary tract symptoms; E87.6 Hypokalemia; I25.118 Atherosclerotic heart disease of native coronary artery with other forms of angina pectoris; E80.6 Other disorders of bilirubin metabolism; K80.80 Other cholelithiasis without obstruction; I48.91 Unspecified atrial fibrillation; I13.10 Hypertensive heart and chronic kidney disease without heart failure, with stage 1 through stage 4 chronic kidney disease, or unspecified chronic kidney disease; N18.9 Chronic kidney disease, unspecified; Z95.5 Presence of coronary angioplasty implant and graft
CPT/HCPCS: 36415; 71010-TC; 76700-TC; 76775-TC; 80053; 80076; 81003; 81015; 82550; 82553; 84484; 85025; 85610; 87040; 87070; 87086; 87186; 87430; 87804; 93005; 93010; 99285-25

== ENCOUNTER 2019-08-24 07:23 | Day surgery (SDC) | payer OTHER ==
[2019-08-23 17:19] VITALS: BMI 30.9
[~2019-08-24 07:23] MED LIST: LACTATED RINGERS SOLUTION 1,000 ML IV SCH; oxyCODONE HCL 5 MG TABLET PO PRN
[2019-08-24] MEDS ORDERED: ROCURONIUM BROMIDE 50 MG/5 ML SYRINGE ONE (09:48)
[2019-08-24] MEDS ORDERED: PROPOFOL 20 ML ONE (09:48)
[2019-08-24] MEDS ORDERED: SODIUM CHLORIDE 0.9% P/F 10 ML VIAL IJ ONE (09:49)
[2019-08-24] MEDS ORDERED: ceFAZolin SODIUM 1 GM VIAL ONE (09:49)
[2019-08-24] MEDS ORDERED: KETOROLAC TROMETHAMINE 30 MG/1 ML VIAL ONE (09:49)
[2019-08-24] MEDS ORDERED: DEXAMETHASONE SOD PHOSPHATE 4 MG/1 ML VIAL ONE (09:49)
[2019-08-24] MEDS ORDERED: LIDOCAINE HCL/PF 2% SDV 5ML VIAL ONE (09:49)
[2019-08-24] MEDS ORDERED: DEXMEDETOMIDINE HCL 200 MCG/2 ML IVPB ONE (09:52)
[2019-08-24] MEDS ORDERED: BUPIVACAINE HCL/PF 0.5% (5 MG/ML) 30 ML VIAL IJ ONE ×2 (10:13)
[2019-08-24] MEDS ORDERED: EPHEDRINE SULFATE/0.9% NACL/PF 50 MG/10 ML SYRINGE NR ONE (11:04)
[2019-08-24] MEDS ORDERED: ceFAZolin SODIUM 1 GM VIAL IVPB ONE (11:18)
[2019-08-24] MEDS ORDERED: NEOSTIGMINE METHYLSULFATE 0.5 MG/ML - 10 ML MDV ONE (12:01)
[2019-08-24] MEDS ORDERED: GLYCOPYRROLATE 0.2 MG/1 ML VIAL ONE (12:02)
[2019-08-24 14:39] VITALS: TEMP 97.6
[2019-08-24 15:50] VITALS: BP 123/66; PULSE 58
== END 2019-08-24 15:45 | disposition home or self-care (01) ==
LOC: JASU-SURG 07:23
PROVIDERS: ATTEND Surgery
PROC: 0FT44ZZ Resection of Gallbladder, Percutaneous Endoscopic Approach (ICD-10-PCS; principal; 2019-08-24 09:30)
DX: K80.10 Calculus of gallbladder with chronic cholecystitis without obstruction (principal); E11.9 Type 2 diabetes mellitus without complications; I10 Essential (primary) hypertension
CPT/HCPCS: 82962; 88304-TC; 94760